=== PATIENT | male | born 1955 | race Caucasian/White ===

== ENCOUNTER 2019-05-30 11:37 | Outpatient (CLI) | payer OTHER ==
--- NOTE | 2019-05-30 12:00 | RAD ---
XR Chest Pa Lat STANDARD HISTORY: Difficulty breathing COMPARISON: None FINDINGS: The heart size is normal. The lungs are well expanded without focal areas of consolidation, pneumothorax or pleural effusions. There is prominence of the pulmonary vascularity.
== END 2019-05-30 11:38 | disposition home or self-care (01) ==
LOC: BICRAD 11:37
PROVIDERS: ATTEND Family Medicine
DX: J44.1 Chronic obstructive pulmonary disease with (acute) exacerbation (principal); R06.02 Shortness of breath
CPT/HCPCS: 71046

== ENCOUNTER 2019-06-01 09:36 | Inpatient (IN) | payer SELFPAY ==
--- NOTE | 2019-06-01 10:14 | RAD ---
XR Chest 1 View Portable HISTORY: Cough and congestion. COMPARISON: 05/30/2019 study. FINDINGS: The heart size is enlarged. There are atherosclerotic changes of the aorta. There are chron ic lung changes present. No infiltrative process. IMPRESSION: Cardiomegaly with chronic lung change.
[2019-06-01 10:43] LABS: #Basophils 0.1 thou/uL (0.0-0.2); #Eosinphils 0.1 thou/uL (0.0-0.7); #Lymphocytes 1.9 thou/uL (1.20-3.40); #Monocytes 0.5 thou/uL (0.11-0.59); #Neutrophils 4.2 thou/uL (1.40-6.50); %Basophils 1.8 % (0.0-1.0); %Eosinophils 1.5 % (0.0-10.0); %Lymphocytes 27.4 % (21.0-51.0); %Monocytes 6.7 % (0.0-10.0); %Neutrophils 62.6 % (42.0-75.0); Hemoglobin 15.8 g/dL (14.0-18.0); Mean Corpuscular HGB CONC 32.6 g/dL (32.0-36.0); Mean Corpuscular Hemoglobin 33.2 pg (27.0-31.0); Mean Platelet Volume 7.8 fL (7.4-10.4); Platelet Count 132 thou/uL (130-400); RBC Distribution Width 12.5 % (11.5-14.5); Red Blood Cell (RBC) Count 4.76 mill/uL (4.70-6.10); White Blood Cell (WBC) Count 6.7 thou/uL (4.8-10.8)
[2019-06-01 11:08] LABS: ALT (SGPT) 38 U/L (8-55); AST (SGOT) 20 U/L (5-34); Albumin 3.5 g/dL (3.4-4.8); Alkaline Phosphatase 72 U/L (40-110); Anion Gap 10 mmol/L (10-20); BUN (Urea Nitrogen) 19 mg/dL (8.4-25.7); Bilirubin, Total 0.9 mg/dL (0.2-1.2); CK (CPK) 102 U/L (30-200); Calc. Creatinine Clearance 0 mL/min (70-130); Carbon Dioxide 25 mmol/L (23-31); Chloride 110 mmol/L (98-107); Estimated GFR-MDRD 61; Globulin 2.5 g/dL (2.4-3.5); Glucose 123 mg/dL (80-115); Lipase 23 U/L (8-78); Potassium 4.2 mmol/L (3.5-5.1); Sodium 141 mmol/L (136-145)
[2019-06-01 11:28] LABS: CKMB 4.9 ng/mL (0-6.6)
--- NOTE | 2019-06-01 11:55 | CT ---
CTA Angio Chest W WO Con HISTORY: Cough shortness of breath and elevated d-dimer. COMPARISON: Chest x-ray done earlier today. Also a 12/29/2012 CT examination. FINDINGS: There are mild bilateral pleural effusions right slightly larger than the left. There are s ome areas of parenchymal scarring in both lung saldaña. There is no significant mediastinal, hilar or axillary adenopathy. There is good pulmonary artery opacification and there is no CT evidence for pulmonary embolus. Visualized liver parenchyma is normal. Right and left kidneys are normal in size. Small hypodensity w ithin the right kidney is partially visualized most likely a cyst. IMPRESSION: 1. No CT evidence for pulmonary embolus. 2. Mild bilateral pleural effusions right larger than left.
[2019-06-01] MEDS ORDERED: Aspirin Chewable 81 MG TAB ONE ×2 (12:07→12:08)
[2019-06-01] MEDS ORDERED: Iopamidol-370 76% 500 ML 1 ML ONE (12:18)
--- NOTE | 2019-06-01 12:32 | PDOC.FPRHP ---
- History of Present Illness Chief Complaint: Chest Pain, Dyspnea History of Present Illness: 66yo with pmh of CAD and endocarditis presents for chest pain, SOB, cough and fever. Saw Dr Alcazar for his cough 2 weeks ago and was prescribed Augmentin and an inhaler. Symptoms continued so late last week a CXR was normal, he was prescribed doxycyline for continued cough. Has been taking Mucinex D with minimal relief. His chest pain has been intermittent, occuring every hour for 20 mins, but became worse this morning causing him to be seen. Chest pain radiates from left lower chest to right side, had an episode radiating down both arms this morning. Endorsed nausea, diaphoresis intermittently, lightheadedness when standing. Currently experiencing pain. Denies vomiting, syncopal episode. He has PMH significant for LAD stent placement w/ poor cardiology follow up. Subsequently he had a bacterial infection on the stent requiring 58 days of antibiotics. He currently is prescribed statin therapy, HERVE I, coreg. PCP: Dr Alcazar ED Course: In the ED pt was found to have indeterminate troponin, CXR revealed enlarged heart w/ chronic lung changes, and a CTA chest ruling out PE, elevated d-dimer, but showed pleural effusions, R > L. BNP elevated, 1909 w/o comparison BNP. CRP 1.27. Abx were not started at pt complained of subjective chills but did no source of infection. Lipase negative, influenza negative. Vitals were stable. - Allergies/Adverse Reactions Allergies Allergy/AdvReac Type Severity Reaction Status Date / Time No Known Allergies Allergy Verified 06/01/19 14:42 - Home Medications Medication Instructions Recorded Confirmed Type Lisinopril 40 mg PO DAILY 12/30/12 06/01/19 History Carvedilol [Coreg] 3.125 mg PO BID 01/04/13 06/01/19 History Simvastatin 20 mg PO HS 01/04/13 06/01/19 History Aspirin [Aspirin EC] 325 mg PO DAILY 06/01/19 06/01/19 History [place]-3 Fatty Acids/Fish Oil 1 cap PO DAILY 06/01/19 06/01/19 History [[place] 3 Fish Oil Softgel] Tamsulosin HCl [Flomax] 0.4 mg PO DAILY 06/01/19 06/01/19 History - History PMHx: HTN, HLD, BPH, Bronchitis PSHx: Tonsillectomy FHx:non-contributory Social: smoked 1ppd since age 19, occasional alcohol - Review of Systems General: reports: fever/chills. denies: weight/appetite/sleep changes, fatigue ENT: denies: nasal congestion, rhinorrhea Respiratory: reports: cough, shortness of breath. denies: congestion Cardiovascular: reports: chest pain. denies: palpitation, edema, orthopnea Gastrointestinal: reports: nausea. denies: vomiting, diarrhea, constipation Genitourinary: denies: incontinence, dysuria Skin: denies: rashes, lesions Musculoskeletal: denies: pain, swelling Neurological: denies: numbness, syncope - Vital signs BP: 128/87 HR: 82 RR: 20 Tmax: 98.3 Pox: 98% on RA Wt: 82.5 kg - Physical Exam Constitutional: NAD, awake, alert and oriented HEENT: PERRLA, EOMI, MMM Neck: FROM, trachea midline Chest: no-tender to palpation Heart: RRR, normal S1/S2, pulses present, no edema Lungs: no respiratory distress -Lungs: Bibasilar crackles present. Good air movement in middle to top of lung. Abdomen: soft, non-tender, bowel sounds present Musculoskeletal: normal structure, normal tone Neurological: no focal deficit, CN II-XII intact Skin: capillary refill <2 seconds Heme/Lymphatic: no purpura, no petechia Psychiatric: normal mood and affect, good judgment and insight FMR H&P: Results - Labs Result Diagrams: 06/02/19 04:42 06/02/19 04:42 Lab results: WBC 6.7 thou/uL (4.8-10.8) 06/01/19 10:02 Hgb 15.8 g/dL (14.0-18.0) 06/01/19 10:02 Hct 48.5 % (42.0-52.0) 06/01/19 10:02 MCV 102.0 fL (78.0-98.0) H 06/01/19 10:02 Plt Count 132 thou/uL (130-400) 06/01/19 10:02 Neutrophils % 62.6 % (42.0-75.0) 06/01/19 10:02 ESR Westergren Less than 1 mm/hr (Less than 20) 06/01/19 10:02 Sodium 141 mmol/L (136-145) 06/01/19 10:01 Potassium 4.2 mmol/L (3.5-5.1) 06/01/19 10:01 Chloride 110 mmol/L (98-107) H 06/01/19 10:01 Carbon Dioxide 25 mmol/L (23-31) 06/01/19 10:01 BUN 19 mg/dL (8.4-25.7) 06/01/19 10:01 Creatinine 1.21 mg/dL (0.7-1.3) 06/01/19 10:01 Glucose 123 mg/dL (80-115) H 06/01/19 10:01 Lactic Acid 1.2 mmol/L (0.5-2.2) 06/01/19 10:02 Calcium 9.0 mg/dL (7.8-10.44) 06/01/19 10:01 Total Bilirubin 0.9 mg/dL (0.2-1.2) 06/01/19 10:01 AST 20 U/L (5-34) 06/01/19 10:01 ALT 38 U/L (8-55) 06/01/19 10:01 Alkaline Phosphatase 72 U/L (40-110) 06/01/19 10:01 Creatine Kinase 102 U/L (30-200) 06/01/19 10:01 CK-MB (CK-2) 4.9 ng/mL (0-6.6) 06/01/19 10:02 C-Reactive Protein 1.27 mg/dL (= or < 0.5) H 06/01/19 10:13 B-Natriuretic Peptide 1909.4 pg/mL (0-100) H 06/01/19 10:01 Serum Total Protein 6.0 g/dL (5.8-8.1) 06/01/19 10:01 Albumin 3.5 g/dL (3.4-4.8) 06/01/19 10:01 Lipase 23 U/L (8-78) 06/01/19 10:01 - EKG Interpretation EKG: NRS, Trigeminy with every third beat a PVC, no ST segment changes - Radiology Interpretation Chest x-ray Status: image reviewed by me (Enlarged heart noted by me. Rad noted chronic lung changes.) CT scan - chest Status: report reviewed by me (CTA revealed no evidence of PE, showed pleural effusion R > L) FMR H&P: A/P - Problem List (1) Atypical chest pain Current Visit: Yes Status: Acute Code(s): R07.89 - OTHER CHEST PAIN (2) Angina at rest Current Visit: Yes Status: Acute Code(s): I20.8 - OTHER FORMS OF ANGINA PECTORIS (3) HTN (hypertension) Current Visit: Yes Status: Acute Code(s): I10 - ESSENTIAL (PRIMARY) HYPERTENSION (4) HLD (hyperlipidemia) Current Visit: Yes Status: Acute Code(s): E78.5 - HYPERLIPIDEMIA, UNSPECIFIED (5) BPH (benign prostatic hyperplasia) Current Visit: Yes Status: Acute Code(s): N40.0 - BENIGN PROSTATIC HYPERPLASIA WITHOUT LOWER URINRY TRACT SYMP (6) Hx of bacterial endocarditis Current Visit: Yes Status: Acute Code(s): Z86.79 - PERSONAL HISTORY OF OTHER DISEASES OF THE CIRCULATORY SYSTEM (7) History of placement of stent in LAD coronary artery Current Visit: Yes Status: Acute Code(s): Z95.5 - PRESENCE OF CORONARY ANGIOPLASTY IMPLANT AND GRAFT (8) Elevated brain natriuretic peptide (BNP) level Current Visit: Yes Status: Acute Code(s): R79.89 - OTHER SPECIFIED ABNORMAL FINDINGS OF BLOOD CHEMISTRY (9) Pleural effusion Current Visit: Yes Status: Acute Code(s): J90 - PLEURAL EFFUSION, NOT ELSEWHERE CLASSIFIED - Plan Pt is a 63 yo male with hx of CAD, stent placed in LAD, hx of endocarditis, HLD , HTN who presents for a 2 week history of cough, dyspnea, and chest pain currently being worked up for cardiac etiology. # Atypical Chest Pain # Hx of LAD stent, CAD # Bilateral Pleural Effusions Pt presents with chest pain with history suspicious for cardiac etiology. He states he had 3 vessels with some degree of atherosclerosis when he received the LAD stent in 2004. He has an elevated BNP, although we do not know his baseline, but pt complains of dyspnea, cough during this time and has pleural effusions on CTA. Concerned for heart failure. Will order echo, trop x 3, procalcitonin to further stratify etiology. - influenza neg, lipase WNL, trop indeterminate x 1, CRP elevated, D-DImer 1.43 , ESR WNL. - pending echo - pending procal - pending trops - lasix 20 mg IV once - Stress am # Cough - procal pending - pending echo # Hx of Endocarditis # Chills Pt complains of chills. 8 years ago he had endocarditis affecting the stent. He was treated for 58 days. No source of infection although he has been on 2 weeks of augmentin then doxycycline for bronchitis. - echo as above - blood cx pending. No other source of infection at this time for causing chills. # HTN - continue home meds; hold carvedilol today for stress test am # HLD - continue home meds, consider titrating up or switching medication # BPH - continue home meds Fluids: None Diet: HH, NPO at midnight for stress VTE: lovenox Code: Full Dispo: < 2 midnight stay FMR H&P: Upper Level - Pertinent history 63yo male with pmh of CAD s/p stent 2004, endocarditis 2009, HTN presents for chills, SOB and chest pain. Also reports cough and congestion. Symptoms all started 2 weeks ago. He was seen by his PCP and treated for bronchitis with no improvement. Chest pain is intermittent, left lower chest radiating to right side. Sometimes radiates down bilateral arms. Denies associated n/v, diaphoresis. Reports endocarditis was treated here in 2009. Never followed up with a bonus clerk after discharge. - Pertinent findings Gen: NAD Neck: JVD present. CV: RRR, no murmurs Pulm: Bibasilar crackles. No respiratory distress. On room air. Extremities: No edema. Atypical Chest Pain - Heart Score: 5. EKG with trigeminy, no signs of ischemia. Initial trop indeterminate. Flu neg. CXR nml and CTA with b/l pleural effusions. Received ASA in ED. Will order Nitro paste and Morphine PRN for pain. Admit to tele obs and make NPO at midnight for stress test in AM. Consider consulting cardiology as pt may be high enough risk for cath instead of stress test. Continue to trend Trops. Hx of Endocarditis - Do not suspect current infection. Will check procal. Hold off on antibiotics. Bld cx drawn. Echo ordered. Currently afebrile and no reported fever at home. Suspect CHF - Bibasilar crackles with elevated BNP. CTA with bilateral pleural effusions R> L. Could be cause of his SOB, chest pain and cough. Will evaluate with Echo and give Lasix 20mg IV. Strict I&Os and weigh daily. Elevated D-Dimer: - CTA neg for PE Other chronic medical conditions detailed in ad operations intern note. - Plan Date/Time: 06/01/19 1232 I, Abby Castañeda, have evaluated this patient and agree with findings/plan as outlined by ad operations intern resident. Pertinent changes/additions are listed here. Addendum - Attending - Attending Attestation Date/Time: 06/02/19 0233 I personally evaluated the patient and discussed the management with Dr. Cutler /Garry I agree with the History, Examination, Assessment and Plan documented above with any addition or exceptions noted below. 63 yo hypertensive smoker with CAD with 2 week cough treated with antibiotic/ inhaler. Patient now with nonexertional Angina. BNP elevated with P.E. c/w HF rales and pleural effusion mild JVD no leg edema no PND. Patient with PMHX significant CAD s/p stent with lack recommended Cardiology follow up. History of endocarditis treated at [facility] not able to retrive past medical record over 10 years ago. Will be admitted PE has been ruled out with CTA in ER no pulmonary infiltrates seen. Patient needs echo and stress testing and starting diuresis with IV lasix. Cardiology consult given his significant PMHX with no f/ u urgency pending results of testing and hospital course.
[2019-06-01 12:43] LABS: Bacteria/HPF None Seen HPF (None Seen); Bilirubin Negative (Negative); Blood, Urine Negative (Negative); Clarity Clear (Clear); Glucose, Urine (Dipstick) Normal (Negative); Leukocyte 75 Leu/uL (Negative); Nitrite Negative (Negative); Protein, Urine (Dipstick) 20 mg/dL (Neg-Trace); RBC/HPF 0-3 HPF (0-3); Squamous Epithelial 0-3 HPF (0-3); Urobilinogen Normal mg/dL (Less than 2)
[2019-06-01] MEDS ORDERED: Ondansetron PF 4 MG/2 ML Vial IVP PRN (13:30)
[2019-06-01] MEDS ORDERED: Ondansetron ODT 4 MG TAB SL PRN (13:30)
[2019-06-01] MEDS ORDERED: Nitroglycerin 0.4 MG TAB (25 Tab Bottle) PO PRN (13:53)
[2019-06-01] MEDS ORDERED: Ondansetron ODT 4 MG TAB PO PRN (13:53)
[2019-06-01] MEDS ORDERED: Furosemide 20 MG/2 ML VIAL SLOW IVP SCH ×2 (14:00→19:00)
[2019-06-01 15:06] LABS: Troponin I 0.062 ng/mL (< 0.028)
[2019-06-01] MEDS: Nicotine 14 MG PATCH TD SCH (15:13)
[2019-06-01 15:32] VITALS: BMI 23.9
[2019-06-01 18:03] LABS: Troponin I 0.064 ng/mL (< 0.028)
[2019-06-01] MEDS: Nitroglycerin 2% Ointment 1 INCH/1 GM Packet TOP SCH (19:11)
[2019-06-01] MEDS: Morphine 2 MG/ML SYRINGE SLOW IVP PRN (19:18)
--- NOTE | 2019-06-01 19:39 | CON ---
DATE OF CONSULTATION: 06/01/2019 REASON FOR CONSULTATION: Congestive heart failure and history of coronary artery disease. HISTORY OF PRESENT ILLNESS: Mr. Marin is a pleasant 63-year-old gentleman, history of anterior myocardial infarction in the early 1999s. He had a stent placed. The family states that about 10 years ago, he had endocarditis and was treated here. The patient has been having progressive shortness of breath and having chest tightness and pain in the both arms. Also had subjective fever and chills. He finally came to the emergency room for further evaluation. The patient has not kept a followup with Cardiology. MEDICATIONS: At home include; 1. Lisinopril. 2. Carvedilol. 3. Simvastatin. 4. Tamsulosin. REVIEW OF SYSTEMS: CONSTITUTIONAL: Positive for weakness and fatigue. VISION: No changes. HEARING: No changes. PULMONARY: Positive for shortness of breath. CARDIAC: Positive shortness of breath and chest pressure. GASTROINTESTINAL: No nausea, vomiting, or diarrhea. SKIN: No rashes. NEUROLOGIC: No unilateral weakness or numbness. PSYCHIATRIC: No unusual depression or anxiety. PHYSICAL EXAMINATION: GENERAL: This is an ill-appearing gentleman, looks older than his chronologic age of 63. He is having some cyclical breathing compatible with Yon-Juarez. VITAL SIGNS: His blood pressure 120/97 and pulse 100 and sinus. HEENT: Eyes, sclerae nonicteric. Mouth, mucous membranes moist. NECK: Supple. No lymphadenopathy. LUNGS: Clear. No wheezing, rales, or rhonchi. CARDIAC: Normal S1 and normal S2. I do not hear murmur, rub, or gallop. ABDOMEN: Soft and nontender. EXTREMITIES: Cool, but not cold. I do not feel pedal pulses. He does have femoral pulses bilaterally. PERTINENT LABORATORY DATA: Troponin of 0.064. Potassium is 4.2. Hemoglobin 15.8. MCV 102. Echocardiogram was done showing severely depressed left ventricular function, ejection fraction 15% to 20%. The apex and anterior wall are akinetic. Moderate tricuspid insufficiency. Lectmipx-ku-vwabew mitral regurgitation. The heart is otherwise globally hypokinetic with akinesis of the other areas. ASSESSMENT: 1. Severely depressed left ventricular function. 2. Congestive heart failure, acute on chronic. 3. Suspect severe multivessel coronary artery disease. 4. May have underlying infection as well. 5. Likely low cardiac output evidence by periodic breathing. PLAN: 1. Add nitrates. 2. Continue beta blockers. 3. Cancel the stress test. 4. Continue diuretic and HERVE inhibitors. We will be glad to follow with you. Prognosis guarded in this gentleman. Eventually, will need cardiac catheterization to see what the options may be. Long-term prognosis guarded at this degree of left ventricular dysfunction. Job ID: [id number]
[2019-06-01] MEDS ORDERED: Atorvastatin Calcium 10 MG TAB PO SCH (21:00)
[2019-06-01] MEDS: Atorvastatin Calcium 40 MG TAB PO SCH (22:24)
[2019-06-01] MEDS: Enoxaparin Sodium 80 MG/0.8 ML SYRINGE SC SCH (22:24)
[2019-06-02] MEDS: Morphine 2 MG/ML SYRINGE SLOW IVP PRN ×3 (03:45→22:09)
[2019-06-02] MEDS: Nitroglycerin 2% Ointment 1 INCH/1 GM Packet TOP SCH ×3 (03:46→22:09)
[2019-06-02 05:00] LABS: #Basophils 0.1 thou/uL (0.0-0.2); #Eosinphils 0.1 thou/uL (0.0-0.7); #Lymphocytes 2.5 thou/uL (1.20-3.40); #Monocytes 0.7 thou/uL (0.11-0.59); #Neutrophils 4.9 thou/uL (1.40-6.50); %Basophils 0.8 % (0.0-1.0); %Eosinophils 1.6 % (0.0-10.0); %Lymphocytes 30.1 % (21.0-51.0); %Monocytes 8.3 % (0.0-10.0); %Neutrophils 59.1 % (42.0-75.0); Hemoglobin 16.9 g/dL (14.0-18.0); Mean Corpuscular HGB CONC 32.8 g/dL (32.0-36.0); Mean Corpuscular Hemoglobin 33.4 pg (27.0-31.0); Mean Platelet Volume 7.8 fL (7.4-10.4); Platelet Count 145 thou/uL (130-400); RBC Distribution Width 12.8 % (11.5-14.5); Red Blood Cell (RBC) Count 5.05 mill/uL (4.70-6.10); White Blood Cell (WBC) Count 8.4 thou/uL (4.8-10.8)
[2019-06-02 05:19] LABS: Anion Gap 13 mmol/L (10-20); BUN (Urea Nitrogen) 16 mg/dL (8.4-25.7); Calc. Creatinine Clearance 76 mL/min (70-130); Carbon Dioxide 21 mmol/L (23-31); Chloride 110 mmol/L (98-107); Estimated GFR-MDRD 63; Glucose 106 mg/dL (80-115); Potassium 4.3 mmol/L (3.5-5.1); Sodium 140 mmol/L (136-145)
[2019-06-02 05:31] LABS: Cardiac Risk 3.2 (Less than 4.5)
--- NOTE | 2019-06-02 06:01 | PDOC.FM ---
- Subjective Subjective: Pt is doing well today. His SOB has improved but remains with episodes of dyspnea. His states he is doing better. He denies Nausea. He has an appetite. - Objective Vital Signs & Weight: Vital Signs (12 hours) Temp Pulse Resp BP BP Pulse Ox 06/02/19 04:00 97.6 F 97 16 129/72 94 L 06/02/19 00:15 97.9 F 93 20 102/75 99 06/01/19 22:58 94 L 06/01/19 18:14 98 F 100 26 H 120/68 95 Weight Weight 81.465 kg I&O: 05/31/19 06/01/19 06/02/19 06:59 06:59 06:59 Intake Total 240 Output Total 2350 Balance -2110 Result Diagrams: 06/02/19 04:42 06/02/19 04:42 Phys Exam - Physical Examination Constitutional: NAD Respiratory: no wheezing Light crackles in bibasilar lungs Cardiovascular: RRR, no significant murmur Gastrointestinal: soft, no distention Musculoskeletal: no edema Dx/Plan (1) Atypical chest pain Code(s): R07.89 - OTHER CHEST PAIN Status: Acute (2) Angina at rest Code(s): I20.8 - OTHER FORMS OF ANGINA PECTORIS Status: Acute (3) HTN (hypertension) Code(s): I10 - ESSENTIAL (PRIMARY) HYPERTENSION Status: Acute (4) HLD (hyperlipidemia) Code(s): E78.5 - HYPERLIPIDEMIA, UNSPECIFIED Status: Acute (5) BPH (benign prostatic hyperplasia) Code(s): N40.0 - BENIGN PROSTATIC HYPERPLASIA WITHOUT LOWER URINRY TRACT SYMP Status: Acute (6) Hx of bacterial endocarditis Code(s): Z86.79 - PERSONAL HISTORY OF OTHER DISEASES OF THE CIRCULATORY SYSTEM Status: Acute (7) History of placement of stent in LAD coronary artery Code(s): Z95.5 - PRESENCE OF CORONARY ANGIOPLASTY IMPLANT AND GRAFT Status: Acute (8) Elevated brain natriuretic peptide (BNP) level Code(s): R79.89 - OTHER SPECIFIED ABNORMAL FINDINGS OF BLOOD CHEMISTRY Status : Acute (9) Pleural effusion Code(s): J90 - PLEURAL EFFUSION, NOT ELSEWHERE CLASSIFIED Status: Acute - Plan Plan: Pt is a 63 yo male with hx of CAD, stent placed in LAD, hx of endocarditis, HLD , HTN who presents for a 2 week history of cough, dyspnea, and chest pain currently being worked up for cardiac etiology. # Atypical Chest Pain # Hx of LAD stent, CAD # Bilateral Pleural Effusions Pt presents with chest pain with history suspicious for cardiac etiology. He states he had 3 vessels with some degree of atherosclerosis when he received the LAD stent in 2004. He has an elevated BNP, although we do not know his baseline, but pt complains of dyspnea, cough during this time and has pleural effusions on CTA. Concerned for heart failure. Will order echo, trop x 3, procalcitonin to further stratify etiology. - influenza neg, lipase WNL, trop indeterminate x 1, CRP elevated, D-DImer 1.43 , ESR WNL. Procal neg. Trop indeterminate x 3. Echo 15-20% EF. 2.3 L of fluid off yesterday. Continue diuresing. Dr. Corea stopped stress test am, restarted Beta Owen, gave extra dose lasix; will need cath in near future. Increase beta owen if HTN management needs to be optimized. - lasix 20 mg IV BID - Cards consult; appreciate recs # Cough - likely secondary to HF # Hx of Endocarditis # Chills Pt complains of chills. 8 years ago he had endocarditis affecting the stent. He was treated for 58 days. No source of infection although he has been on 2 weeks of augmentin then doxycycline for bronchitis. - no evidence on echo - blood cx pending. No other source of infection at this time for causing chills. # HTN - continue home meds; hold carvedilol today for stress test am # HLD - continue home meds, consider titrating up or switching medication # BPH - continue home meds Fluids: None Diet: HH, NPO at midnight for stress VTE: lovenox Code: Full Dispo: < 2 midnight stay Addendum - Attending - Attending Attestation Date/Time: 06/02/19 5827 I personally evaluated the patient and discussed the management with Dr. Cutler I agree with the History, Examination, Assessment and Plan documented above with any addition or exceptions noted below. Good response to diuresis further evaluation with heart catherization per Cardiology.
[2019-06-02] MEDS: Furosemide 20 MG/2 ML VIAL SLOW IVP SCH ×2 (06:28→14:09)
[2019-06-02] MEDS ORDERED: Carvedilol 3.125 MG TAB PO SCH (08:00)
[2019-06-02] MEDS ORDERED: Aspirin 300 MG Suppository PR SCH (09:00)
[2019-06-02] MEDS ORDERED: Lisinopril 20 MG TAB PO SCH (09:00)
[2019-06-02] MEDS ORDERED: Enoxaparin Sodium 40 MG/0.4 ML SYRINGE SC SCH (09:00)
[2019-06-02] MEDS ORDERED: Aspirin 81 mg Enteric Coated Tablet PO SCH (09:00)
[2019-06-02] MEDS: Aspirin 325 mg Enteric Coated Tablet PO SCH (09:42)
[2019-06-02] MEDS: Tamsulosin HCl 0.4 MG CAP PO SCH (09:43)
[2019-06-02] MEDS: Enoxaparin Sodium 80 MG/0.8 ML SYRINGE SC SCH ×2 (09:43→20:04)
[2019-06-02] MEDS: Acetaminophen 325 MG TAB PO PRN (12:02)
[2019-06-02] MEDS: Nicotine 14 MG PATCH TD SCH (14:09)
[2019-06-02] MEDS: Carvedilol 6.25 MG TAB PO SCH (17:13)
[2019-06-02] MEDS ORDERED: Communication Order-Pharmacy FS SCH (18:00)
--- NOTE | 2019-06-02 18:10 | PRG ---
DATE OF SERVICE: 06/02/2019 SUBJECTIVE: Mr. Marin is breathing much better today. No chest pain or pressure. He looks much more relaxed. OBJECTIVE: VITAL SIGNS: Blood pressure 105/65, pulse 70. LUNGS: Clear. CARDIAC: Normal S1, normal S2. ABDOMEN: Soft and nontender. ASSESSMENT: 1. Severely depressed left ventricular function. 2. Episode of congestive heart failure, associated with chest pressure and anginal symptoms. 3. Myocardial infarction over 15 years ago with stenting. 4. He said the other vessels also had narrowing. 5. He still continued to smoke up until this admission. PLAN: Proceed to cardiac catheterization tomorrow and the family and patient understands the risks are markedly increased due to heart muscle weakness. The risks including bleeding, infection, stent thrombosis, stent restenosis, emergency bypass surgery all understood by the patient and family. They understand the risks are much hard and because of his heart muscle weakness, also iodine allergy, loss of blood supply to leg or kidney all discussed. Job ID: [id number]
[2019-06-02] MEDS: Atorvastatin Calcium 40 MG TAB PO SCH (20:04)
[2019-06-02] MEDS ORDERED: hydrOXYzine 25 MG TAB PO PRN (21:00)
[2019-06-03] MEDS ORDERED: Diazepam 5 MG TAB PO SCH (06:00)
--- NOTE | 2019-06-03 06:02 | PDOC.FM ---
- Subjective Subjective: Pt is doing better than on admission but remains with episodes of SOB. He is anxious as is his . Pt understands plan and is waiting for the cath. - Objective Vital Signs & Weight: Vital Signs (12 hours) Temp Pulse Resp BP Pulse Ox 06/03/19 04:15 95 06/03/19 04:00 97.6 F 92 16 109/79 90 L 06/02/19 23:58 97.2 F L 75 16 105/75 96 06/02/19 20:00 97.4 F L 87 16 111/76 94 L Weight Weight 80.24 kg I&O: 06/01/19 06/02/19 06/03/19 06:59 06:59 06:59 Intake Total 240 733 Output Total 2350 1075 Balance -2110 -342 Result Diagrams: 06/03/19 06:11 06/03/19 06:11 Phys Exam - Physical Examination Constitutional: NAD Respiratory: no wheezing, clear to auscultation bilateral Cardiovascular: RRR, no significant murmur Gastrointestinal: soft, non-tender Musculoskeletal: no edema, pulses present Dx/Plan (1) Atypical chest pain Code(s): R07.89 - OTHER CHEST PAIN Status: Acute (2) Angina at rest Code(s): I20.8 - OTHER FORMS OF ANGINA PECTORIS Status: Acute (3) HTN (hypertension) Code(s): I10 - ESSENTIAL (PRIMARY) HYPERTENSION Status: Acute (4) HLD (hyperlipidemia) Code(s): E78.5 - HYPERLIPIDEMIA, UNSPECIFIED Status: Acute (5) BPH (benign prostatic hyperplasia) Code(s): N40.0 - BENIGN PROSTATIC HYPERPLASIA WITHOUT LOWER URINRY TRACT SYMP Status: Acute (6) Hx of bacterial endocarditis Code(s): Z86.79 - PERSONAL HISTORY OF OTHER DISEASES OF THE CIRCULATORY SYSTEM Status: Acute (7) History of placement of stent in LAD coronary artery Code(s): Z95.5 - PRESENCE OF CORONARY ANGIOPLASTY IMPLANT AND GRAFT Status: Acute (8) Elevated brain natriuretic peptide (BNP) level Code(s): R79.89 - OTHER SPECIFIED ABNORMAL FINDINGS OF BLOOD CHEMISTRY Status : Acute (9) Pleural effusion Code(s): J90 - PLEURAL EFFUSION, NOT ELSEWHERE CLASSIFIED Status: Acute - Plan Plan: Pt is a 63 yo male with hx of CAD, stent placed in LAD, hx of endocarditis, HLD , HTN who presents for a 2 week history of cough, dyspnea, and chest pain currently waiting for cardiac cath, echo 15-20 %. # Atypical Chest Pain # Hx of LAD stent, CAD # Bilateral Pleural Effusions Pt presents with chest pain with history suspicious for cardiac etiology. He states he had 3 vessels with some degree of atherosclerosis when he received the LAD stent in 2004. He has an elevated BNP, although we do not know his baseline, but pt complained of dyspnea, cough during this time and has pleural effusions on CTA. Echo revealed EF 15-20%. Dr. Corea will perform cardiac cath today. Pt will need life vest on discharge likely. Pt continues to diurese well. - influenza neg, lipase WNL ,CRP elevated, D-DImer 1.43, ESR WNL. Procal neg. Trop indeterminate x 3. - lasix 20 mg IV BID - Cards consult; appreciate recs # HFrEF - as above - statin, HERVE-I, beta vipin, asp started # Cough - likely secondary to HF # Hx of Endocarditis # Chills Pt complains of chills. 8 years ago he had endocarditis affecting the stent. He was treated for 58 days. No source of infection although he has been on 2 weeks of augmentin then doxycycline for bronchitis. - no evidence on echo - blood cx negative # HTN - as above, well controlled # HLD - continue home meds, consider titrating up or switching medication # BPH - continue home meds Fluids: None Diet: HH, NPO at midnight for stress VTE: lovenox Code: Full Dispo: < 2 midnight stay Addendum - Attending - Attending Attestation Date/Time: 06/03/19 8014 I personally evaluated the patient and discussed the management with Dr. Cutler. I agree with the History, Examination, Assessment and Plan documented above with any addition or exceptions noted below. Patient undergoing heart cath this morning. Further recs per cardiology result.
[2019-06-03] MEDS: Furosemide 20 MG/2 ML VIAL SLOW IVP SCH (06:06)
[2019-06-03] MEDS: Nitroglycerin 2% Ointment 1 INCH/1 GM Packet TOP SCH ×3 (06:06→19:39)
[2019-06-03] MEDS: Sodium Chloride 0.9% 1,000 ML IV SCH (06:07)
[2019-06-03 06:19] LABS: #Basophils 0.1 thou/uL (0.0-0.2); #Eosinphils 0.2 thou/uL (0.0-0.7); #Lymphocytes 2.5 thou/uL (1.20-3.40); #Monocytes 0.6 thou/uL (0.11-0.59); #Neutrophils 3.4 thou/uL (1.40-6.50); %Basophils 1.6 % (0.0-1.0); %Eosinophils 2.5 % (0.0-10.0); %Lymphocytes 37.5 % (21.0-51.0); %Monocytes 8.6 % (0.0-10.0); %Neutrophils 49.8 % (42.0-75.0); Hemoglobin 16.1 g/dL (14.0-18.0); Mean Corpuscular Hemoglobin 33.1 pg (27.0-31.0); Mean Platelet Volume 7.8 fL (7.4-10.4); Platelet Count 143 thou/uL (130-400); RBC Distribution Width 12.5 % (11.5-14.5); Red Blood Cell (RBC) Count 4.88 mill/uL (4.70-6.10); White Blood Cell (WBC) Count 6.8 thou/uL (4.8-10.8)
[2019-06-03 06:57] LABS: Anion Gap 11 mmol/L (10-20); BUN (Urea Nitrogen) 21 mg/dL (8.4-25.7); Calc. Creatinine Clearance 73 mL/min (70-130); Calcium 8.6 mg/dL (7.8-10.44); Carbon Dioxide 24 mmol/L (23-31); Chloride 108 mmol/L (98-107); Estimated GFR-MDRD 61; Glucose 103 mg/dL (80-115); Sodium 139 mmol/L (136-145)
[2019-06-03] MEDS ORDERED: Heparin (Artline) 1,000 ML ONE (09:16)
[2019-06-03] MEDS: Tamsulosin HCl 0.4 MG CAP PO SCH (09:39)
[2019-06-03] MEDS: Carvedilol 6.25 MG TAB PO SCH (09:39)
[2019-06-03] MEDS: Lisinopril 10 MG TAB PO SCH (09:39)
[2019-06-03] MEDS: Aspirin 325 mg Enteric Coated Tablet PO SCH (09:39)
[2019-06-03] MEDS ORDERED: Fentanyl 100 MCG/2 ML VIAL ONE (10:43)
[2019-06-03] MEDS ORDERED: Midazolam HCl 2 mg/2 ml Vial ONE (10:43)
[2019-06-03] MEDS ORDERED: Iopamidol 370 76% 100 ML VIAL ONE (10:56)
[2019-06-03] MEDS ORDERED: Sodium Chloride 0.9% 200 ML IV PRN (11:46)
[2019-06-03] MEDS ORDERED: Nitroglycerin 0.4 MG TAB (25 Tab Bottle) SL PRN (11:46)
[2019-06-03] MEDS ORDERED: Acetaminophen/Codeine 30-300mg Tablet PO PRN ×2 (11:46)
[2019-06-03] MEDS: Nicotine 14 MG PATCH TD SCH (14:11)
--- NOTE | 2019-06-03 14:55 | PRG ---
DATE OF SERVICE: 06/03/2019 ADDENDUM: Please add this as an addendum to the note of Dr. Jose Cutler. Mr. Marin is a 63-year-old man with known coronary artery disease, who was admitted with chest pain. He was seen in consultation by the Cardiology Service. He is currently being taken for cardiac catheterization. Job ID: [id number]
[2019-06-03] MEDS: Morphine 2 MG/ML SYRINGE SLOW IVP PRN (15:03)
[2019-06-03] MEDS ORDERED: Clopidogrel Bisulfate 300 MG TAB PO SCH (17:00)
[2019-06-03] MEDS: Atorvastatin Calcium 40 MG TAB PO SCH (19:39)
[2019-06-03] MEDS: Acetaminophen 325 MG TAB PO PRN (21:29)
[2019-06-04] MEDS: Sodium Chloride 0.9% 1,000 ML IV SCH (00:33)
[2019-06-04] MEDS: Nitroglycerin 2% Ointment 1 INCH/1 GM Packet TOP SCH ×4 (05:18→22:58)
[2019-06-04 05:37] LABS: #Basophils 0.1 thou/uL (0.0-0.2); #Eosinphils 0.2 thou/uL (0.0-0.7); #Lymphocytes 2.5 thou/uL (1.20-3.40); #Monocytes 0.5 thou/uL (0.11-0.59); %Basophils 1.2 % (0.0-1.0); %Eosinophils 3.7 % (0.0-10.0); %Lymphocytes 39.1 % (21.0-51.0); %Monocytes 8.5 % (0.0-10.0); %Neutrophils 47.5 % (42.0-75.0); Hemoglobin 15.5 g/dL (14.0-18.0); Mean Corpuscular HGB CONC 32.5 g/dL (32.0-36.0); Mean Corpuscular Hemoglobin 32.7 pg (27.0-31.0); Mean Platelet Volume 7.9 fL (7.4-10.4); Platelet Count 140 thou/uL (130-400); RBC Distribution Width 12.4 % (11.5-14.5); Red Blood Cell (RBC) Count 4.75 mill/uL (4.70-6.10); White Blood Cell (WBC) Count 6.3 thou/uL (4.8-10.8)
--- NOTE | 2019-06-04 05:53 | PDOC.FM ---
- Subjective Subjective: Pt's breathing is better than yesterday but he remains with episodes of dyspnea. states he has been anxious. He denies LE edema. - Objective Vital Signs & Weight: Vital Signs (12 hours) Temp Pulse Resp BP Pulse Ox 06/04/19 04:30 97.5 F L 84 16 113/73 97 06/03/19 23:15 97.6 F 92 18 131/85 96 06/03/19 19:42 97.6 F 86 18 110/73 97 Weight Weight 79.56 kg I&O: 06/02/19 06/03/19 06/04/19 06:59 06:59 06:59 Intake Total 240 1033 2150 Output Total 2350 1775 750 Balance -2110 -742 1400 Result Diagrams: 06/04/19 05:03 06/04/19 05:03 Phys Exam - Physical Examination Constitutional: NAD HEENT: PERRLA, moist MMs Respiratory: no wheezing, clear to auscultation bilateral Cardiovascular: RRR, no significant murmur Gastrointestinal: soft, non-tender Musculoskeletal: no edema, pulses present Psychiatric: normal affect, A&O x 3 Dx/Plan (1) Atypical chest pain Code(s): R07.89 - OTHER CHEST PAIN Status: Acute (2) Angina at rest Code(s): I20.8 - OTHER FORMS OF ANGINA PECTORIS Status: Acute (3) HTN (hypertension) Code(s): I10 - ESSENTIAL (PRIMARY) HYPERTENSION Status: Acute (4) HLD (hyperlipidemia) Code(s): E78.5 - HYPERLIPIDEMIA, UNSPECIFIED Status: Acute (5) BPH (benign prostatic hyperplasia) Code(s): N40.0 - BENIGN PROSTATIC HYPERPLASIA WITHOUT LOWER URINRY TRACT SYMP Status: Acute (6) Hx of bacterial endocarditis Code(s): Z86.79 - PERSONAL HISTORY OF OTHER DISEASES OF THE CIRCULATORY SYSTEM Status: Acute (7) History of placement of stent in LAD coronary artery Code(s): Z95.5 - PRESENCE OF CORONARY ANGIOPLASTY IMPLANT AND GRAFT Status: Acute (8) Elevated brain natriuretic peptide (BNP) level Code(s): R79.89 - OTHER SPECIFIED ABNORMAL FINDINGS OF BLOOD CHEMISTRY Status : Acute (9) Pleural effusion Code(s): J90 - PLEURAL EFFUSION, NOT ELSEWHERE CLASSIFIED Status: Acute (10) Coronary artery disease Code(s): I25.10 - ATHSCL HEART DISEASE OF [place] CORONARY ARTERY W/O ANG PCTRS Status: Acute - Plan Plan: Pt is a 63 yo male with hx of CAD, stent placed in LAD, hx of endocarditis, HLD , HTN who presents for a 2 week history of cough, dyspnea, and chest pain found to have significant atherosclerosis in 3 vessels on cardiac cath. # Atypical Chest Pain # Hx of LAD stent, CAD # Bilateral Pleural Effusions Pt presents with chest pain secondary to cardiac etiology. He states he had 3 vessels with some degree of atherosclerosis when he received the LAD stent in 2004. He has an elevated BNP, although we do not know his baseline, but pt complained of dyspnea, cough during this time and has pleural effusions on CTA. Echo revealed EF 15-20%. Dr. Corea performed cardiac cath revealing 3 vessel CAD, PVD in R iliac; akinetic anterior wall, apex, inferior wall. Pt will need life vest on discharge likely. Pt diuresed well, d/c lasix. - influenza neg, lipase WNL ,CRP elevated, D-DImer 1.43, ESR WNL. Procal neg. Trop indeterminate x 3. - Cards consult; appreciate recs - d/c coreg at this time, continued lisinopril , aspirin, started plavix. # HFrEF - as above # Cough - improving - likely secondary to HF # Hx of Endocarditis # Chills Pt complains of chills. 8 years ago he had endocarditis affecting the stent. He was treated for 58 days. No source of infection although he has been on 2 weeks of augmentin then doxycycline for bronchitis. - no evidence on echo - blood cx negative # HTN - as above, well controlled # HLD - continue home meds, consider titrating up or switching medication # BPH - continue home meds Fluids: None Diet: HH, NPO at midnight for stress VTE: lovenox Code: Full Dispo: < 2 midnight stay
[2019-06-04 06:01] LABS: Anion Gap 11 mmol/L (10-20); BUN (Urea Nitrogen) 17 mg/dL (8.4-25.7); Calc. Creatinine Clearance 91 mL/min (70-130); Calcium 8.4 mg/dL (7.8-10.44); Carbon Dioxide 22 mmol/L (23-31); Chloride 109 mmol/L (98-107); Estimated GFR-MDRD 80; Glucose 97 mg/dL (80-115); Potassium 3.9 mmol/L (3.5-5.1); Sodium 138 mmol/L (136-145)
[2019-06-04] MEDS: Acetaminophen 325 MG TAB PO PRN ×2 (08:46→23:03)
[2019-06-04] MEDS: Lisinopril 10 MG TAB PO SCH (08:46)
[2019-06-04] MEDS: Clopidogrel Bisulfate 75 MG TAB PO SCH (08:46)
[2019-06-04] MEDS: Aspirin 325 mg Enteric Coated Tablet PO SCH (08:46)
[2019-06-04] MEDS: Tamsulosin HCl 0.4 MG CAP PO SCH (08:46)
[2019-06-04] MEDS: Nicotine 14 MG PATCH TD SCH (14:35)
--- NOTE | 2019-06-04 15:33 | ULT ---
US PseudoAneurysm Smita Evl History: Recent catheterization right groin Comparison: None. Findings: Real-time grayscale and color evaluation of the right groin was performed. Mild soft tissue edema. No aneurysm. No hematoma. Impression: No pseudoaneurysm appreciated.
[2019-06-04] MEDS ORDERED: Carvedilol 3.125 MG TAB PO SCH (18:30)
--- NOTE | 2019-06-04 19:44 | PRG ---
DATE OF SERVICE: 06/04/2019 SUBJECTIVE: Mr. Marin is feeling somewhat better he said. He looks somewhat less short of breath. OBJECTIVE: VITAL SIGNS: Blood pressure 118/89, pulse 84 and regular. LUNGS: Clear. CARDIAC: Normal S1, normal S2. ABDOMEN: Soft and nontender. ASSESSMENT: 1. Severely depressed left ventricular function. 2. Nonsustained ventricular tachycardia. 3. He has actually been on the HERVE inhibitors and beta-blockers for 3 months. PLAN: 1. We will try to do a thallium viability study tomorrow to see how much of his anterior wall might be viable. 2. Tentatively plan for defibrillator implantation on . Job ID: [id number]
[2019-06-04] MEDS: Atorvastatin Calcium 40 MG TAB PO SCH (21:44)
[2019-06-04] MEDS ORDERED: Sodium Chloride 0.65% Nasal 44 ML BOT EA NARE PRN (21:50)
[2019-06-05] MEDS: Melatonin 3 MG TAB PO PRN ×2 (00:09→20:40)
--- NOTE | 2019-06-05 05:58 | PDOC.FM ---
- Subjective Subjective: Pt had a short episode of non-sustained V-Tach, asymptomatic. He also experienced dyspnea, CXR revealed no changes. Today he is doing but remains with cyclical episodes of dyspnea at rest. He has an appetite. Denies chest pain, LE edema. - Objective Vital Signs & Weight: Vital Signs (12 hours) Temp Pulse Resp BP BP Pulse Ox 06/05/19 04:00 97.6 F 91 14 112/80 97 06/05/19 00:00 99 06/04/19 23:04 101 H 24 H 129/81 99 06/04/19 20:00 98.6 F 94 12 102/63 96 Weight Weight 79.515 kg I&O: 06/03/19 06/04/19 06/05/19 06:59 06:59 06:59 Intake Total 1033 2150 Output Total 1775 750 Balance -742 1400 Result Diagrams: 06/04/19 05:03 06/04/19 05:03 Phys Exam - Physical Examination Constitutional: NAD HEENT: PERRLA, moist MMs Respiratory: no wheezing, clear to auscultation bilateral Cardiovascular: RRR, no significant murmur Gastrointestinal: soft, non-tender Musculoskeletal: no edema Dx/Plan (1) Atypical chest pain Code(s): R07.89 - OTHER CHEST PAIN Status: Acute (2) Angina at rest Code(s): I20.8 - OTHER FORMS OF ANGINA PECTORIS Status: Acute (3) HTN (hypertension) Code(s): I10 - ESSENTIAL (PRIMARY) HYPERTENSION Status: Acute (4) HLD (hyperlipidemia) Code(s): E78.5 - HYPERLIPIDEMIA, UNSPECIFIED Status: Acute (5) BPH (benign prostatic hyperplasia) Code(s): N40.0 - BENIGN PROSTATIC HYPERPLASIA WITHOUT LOWER URINRY TRACT SYMP Status: Acute (6) Hx of bacterial endocarditis Code(s): Z86.79 - PERSONAL HISTORY OF OTHER DISEASES OF THE CIRCULATORY SYSTEM Status: Acute (7) History of placement of stent in LAD coronary artery Code(s): Z95.5 - PRESENCE OF CORONARY ANGIOPLASTY IMPLANT AND GRAFT Status: Acute (8) Elevated brain natriuretic peptide (BNP) level Code(s): R79.89 - OTHER SPECIFIED ABNORMAL FINDINGS OF BLOOD CHEMISTRY Status : Acute (9) Pleural effusion Code(s): J90 - PLEURAL EFFUSION, NOT ELSEWHERE CLASSIFIED Status: Acute (10) Coronary artery disease Code(s): I25.10 - ATHSCL HEART DISEASE OF [place] CORONARY ARTERY W/O ANG PCTRS Status: Acute (11) Systolic heart failure secondary to coronary artery disease Code(s): I50.20 - UNSPECIFIED SYSTOLIC (CONGESTIVE) HEART FAILURE; I25.10 - ATHSCL HEART DISEASE OF [place] CORONARY ARTERY W/O ANG PCTRS Status: Acute - Plan Plan: Pt is a 63 yo male with hx of CAD, stent placed in LAD, hx of endocarditis, HLD , HTN who presents for a 2 week history of cough, dyspnea, and chest pain found to have significant atherosclerosis in 3 vessels on cardiac cath. # CAD - 3 vessel disease # Atypical Chest Pain # Hx of LAD stent, CAD # Bilateral Pleural Effusions on admission Pt presents with chest pain secondary to cardiac etiology. He states he had 3 vessels with some degree of atherosclerosis when he received the LAD stent in 2004. He has an elevated BNP, although we do not know his baseline, but pt complained of dyspnea, cough during this time and has pleural effusions on CTA. Echo revealed EF 15-20%. Dr. Corea performed cardiac cath revealing 3 vessel CAD, PVD in R iliac; akinetic anterior wall, apex, inferior wall. Dr. Corea noted on 06/05/19 pt will undergo viability study to assess how much anterior wall is viable, Tentatively he will need a defibrillator implantation. - influenza neg, lipase WNL ,CRP elevated, D-DImer 1.43, ESR WNL. Procal neg. Trop indeterminate x 3. - Cards consult; appreciate recs - continued coreg, lisinopril, aspirin, started plavix. # HFrEF - as above # Dyspnea - secondary to poor oxygenation, heart failure. # Cough - improving - likely secondary to HF # Hx of Endocarditis # Chills Pt complains of chills. 8 years ago he had endocarditis affecting the stent. He was treated for 58 days. No source of infection although he has been on 2 weeks of augmentin then doxycycline for bronchitis. - no evidence on echo - blood cx negative # HTN - as above, well controlled # HLD - continue home meds, consider titrating up or switching medication # BPH - continue home meds # PVD R Iliac - statin therapy Fluids: None Diet: HH, NPO at midnight for stress VTE: lovenox Code: Full Dispo: < 2 midnight stay
[2019-06-05] MEDS: Nitroglycerin 2% Ointment 1 INCH/1 GM Packet TOP SCH ×3 (07:28→22:20)
--- NOTE | 2019-06-05 08:03 | PRG ---
DATE OF SERVICE: 06/04/2019 ADDENDUM: This is an addendum to the note of Dr. Jose Cutler. I agree with the assessment and plan of Dr. Cutler. Job ID: [id number]
[2019-06-05] MEDS ORDERED: Furosemide 40 MG/4 ML VIAL SLOW IVP SCH (09:00)
[2019-06-05] MEDS ORDERED: Potassium Chloride 20 MEQ TAB PO SCH (09:00)
[2019-06-05] MEDS ORDERED: Spironolactone 25 MG TAB PO SCH (09:00)
--- NOTE | 2019-06-05 09:24 | PRG ---
DATE OF SERVICE: 06/05/2019 SUBJECTIVE: Mr. Marin had some shortness of breath last night. He felt anxiety as well. He states that it was difficult to breathe. He is feeling somewhat better today. OBJECTIVE: VITAL SIGNS: His blood pressure today is high for him 136/83, pulse 88 and regular. LUNGS: Clear. CARDIAC: Normal S1 and normal S2. ABDOMEN: Soft and nontender. EXTREMITIES: There is no edema. ASSESSMENT: 1. Severe congestive heart failure with recurrent orthopnea last night. 2. Severe coronary artery disease as outlined in the chart with an extensive previous anterior infarct. PLAN: We are hoping to get a viability study to see whether there would be any potential benefit from percutaneously intervening on the LAD. I think the mid and distal anterior wall are akinetic, but there could be some viable muscle more proximally. Tentatively, planning on defibrillator on Monday. Given dextrose and furosemide today and add spironolactone. Prognosis long-term guarded to poor. Job ID: [id number]
--- NOTE | 2019-06-05 09:28 | RAD ---
CHEST 1 VIEW: Date: 06/04/19 HISTORY: Shortness of breath. COMPARISON: 06/01/19. FINDINGS: Stable borderline cardiomegaly, increased markings bilaterally. No confluent pneumonia, acute edema, pleural effusion, or other acute process. IMPRESSION: Stable chronic changes. No acute intrathoracic disease. POS: [facility]
[2019-06-05] MEDS: Aspirin 325 mg Enteric Coated Tablet PO SCH (10:03)
[2019-06-05] MEDS: Carvedilol 3.125 MG TAB PO SCH ×2 (10:03→18:21)
[2019-06-05] MEDS: Clopidogrel Bisulfate 75 MG TAB PO SCH (10:04)
[2019-06-05] MEDS: Lisinopril 10 MG TAB PO SCH (10:04)
[2019-06-05] MEDS: Nicotine 14 MG PATCH TD SCH (14:37)
[2019-06-05] MEDS: Enoxaparin Sodium 40 MG/0.4 ML SYRINGE SC SCH (20:32)
[2019-06-05] MEDS: Atorvastatin Calcium 40 MG TAB PO SCH (20:33)
[2019-06-05] MEDS: Tamsulosin HCl 0.4 MG CAP PO SCH (20:33)
[2019-06-06 05:16] LABS: Anion Gap 12 mmol/L (10-20); BUN (Urea Nitrogen) 23 mg/dL (8.4-25.7); Calc. Creatinine Clearance 79 mL/min (70-130); Carbon Dioxide 23 mmol/L (23-31); Chloride 108 mmol/L (98-107); Estimated GFR-MDRD 70; Glucose 101 mg/dL (80-115); Sodium 139 mmol/L (136-145)
--- NOTE | 2019-06-06 06:08 | PDOC.FM ---
- Subjective Subjective: Pt is doing well today. He is tolerating walking. He denies chest pain, LE edema. He does have episodes of dyspnea at rest. - Objective Vital Signs & Weight: Vital Signs (12 hours) Temp Pulse Resp BP BP Pulse Ox 06/06/19 03:35 98.3 F 85 16 93/54 L 95 06/05/19 23:24 98.5 F 77 16 95/63 97 06/05/19 19:23 98.3 F 76 16 101/63 95 Weight Weight 77.564 kg I&O: 06/04/19 06/05/19 06/06/19 06:59 06:59 06:59 Intake Total 2150 650 Output Total 750 2900 Balance 1400 -2250 Result Diagrams: 06/04/19 05:03 06/06/19 04:31 Phys Exam - Physical Examination Constitutional: NAD Respiratory: no wheezing, clear to auscultation bilateral Cardiovascular: RRR, no significant murmur Gastrointestinal: soft, non-tender, no distention Musculoskeletal: no edema Dx/Plan (1) Atypical chest pain Code(s): R07.89 - OTHER CHEST PAIN Status: Acute (2) Angina at rest Code(s): I20.8 - OTHER FORMS OF ANGINA PECTORIS Status: Acute (3) HTN (hypertension) Code(s): I10 - ESSENTIAL (PRIMARY) HYPERTENSION Status: Acute (4) HLD (hyperlipidemia) Code(s): E78.5 - HYPERLIPIDEMIA, UNSPECIFIED Status: Acute (5) BPH (benign prostatic hyperplasia) Code(s): N40.0 - BENIGN PROSTATIC HYPERPLASIA WITHOUT LOWER URINRY TRACT SYMP Status: Acute (6) Hx of bacterial endocarditis Code(s): Z86.79 - PERSONAL HISTORY OF OTHER DISEASES OF THE CIRCULATORY SYSTEM Status: Acute (7) History of placement of stent in LAD coronary artery Code(s): Z95.5 - PRESENCE OF CORONARY ANGIOPLASTY IMPLANT AND GRAFT Status: Acute (8) Elevated brain natriuretic peptide (BNP) level Code(s): R79.89 - OTHER SPECIFIED ABNORMAL FINDINGS OF BLOOD CHEMISTRY Status : Acute (9) Pleural effusion Code(s): J90 - PLEURAL EFFUSION, NOT ELSEWHERE CLASSIFIED Status: Acute (10) Coronary artery disease Code(s): I25.10 - ATHSCL HEART DISEASE OF [place] CORONARY ARTERY W/O ANG PCTRS Status: Acute (11) Systolic heart failure secondary to coronary artery disease Code(s): I50.20 - UNSPECIFIED SYSTOLIC (CONGESTIVE) HEART FAILURE; I25.10 - ATHSCL HEART DISEASE OF [place] CORONARY ARTERY W/O ANG PCTRS Status: Acute - Plan Plan: Pt is a 63 yo male with hx of CAD, stent placed in LAD, hx of endocarditis, HLD , HTN who presents for a 2 week history of cough, dyspnea, and chest pain found to have significant atherosclerosis in 3 vessels on cardiac cath. # CAD - 3 vessel disease # Atypical Chest Pain # Hx of LAD stent, CAD # Bilateral Pleural Effusions on admission Pt presents with chest pain secondary to cardiac etiology. He states he had 3 vessels with some degree of atherosclerosis when he received the LAD stent in 2004. He has an elevated BNP, although we do not know his baseline, but pt complained of dyspnea, cough during this time and has pleural effusions on CTA. Echo revealed EF 15-20%. Dr. Corea performed cardiac cath revealing 3 vessel CAD, PVD in R iliac; akinetic anterior wall, apex, inferior wall. Dr. Corea noted on 06/05/19 pt will undergo viability study to assess how much anterior wall is viable, Tentatively he will need a defibrillator implantation, possibly tomorrow. - influenza neg, lipase WNL ,CRP elevated, D-Dimer 1.43, ESR WNL. Procal neg. Trop indeterminate x 3. - Cards consult; appreciate recs - continued coreg, lisinopril, aspirin, started plavix. Added spironolactone 06/06. # HFrEF - as above # Dyspnea - secondary to poor oxygenation, heart failure. # Cough - improving - likely secondary to HF # Hx of Endocarditis # Chills Pt complains of chills. 8 years ago he had endocarditis affecting the stent. He was treated for 58 days. No source of infection although he has been on 2 weeks of augmentin then doxycycline for bronchitis. - no evidence on echo - blood cx negative # HTN - as above, well controlled # HLD - continue home meds, consider titrating up or switching medication # BPH - continue home meds # PVD R Iliac - statin therapy Fluids: None Diet: HH VTE: lovenox Code: Full Dispo: > 2 midnight stay
[2019-06-06] MEDS: Nitroglycerin 2% Ointment 1 INCH/1 GM Packet TOP SCH ×3 (06:35→21:13)
[2019-06-06] MEDS: Clopidogrel Bisulfate 75 MG TAB PO SCH (08:24)
[2019-06-06] MEDS: Carvedilol 3.125 MG TAB PO SCH ×2 (08:24→17:34)
[2019-06-06] MEDS: Lisinopril 10 MG TAB PO SCH (08:24)
[2019-06-06] MEDS: Aspirin 325 mg Enteric Coated Tablet PO SCH (08:24)
[2019-06-06] MEDS: Spironolactone 25 MG TAB PO SCH (08:25)
--- NOTE | 2019-06-06 09:33 | PRG ---
DATE OF SERVICE: 06/06/2019 SUBJECTIVE: Mr. Marin had a really good diuresis yesterday and feels better. He is -2 L yesterday. He is breathing well. OBJECTIVE: VITAL SIGNS: Blood pressure 102/70, pulse 87 and regular. LUNGS: Clear. CARDIAC: Normal S1, normal S2. ASSESSMENT: 1. Severely depressed left ventricular function. 2. Congestive heart failure, systolic, acute on chronic, improved. 3. Severe inoperable coronary artery disease. 4. Nonsustained ventricular tachycardia. PLAN: 1. Proceed to defibrillator implantation tomorrow. 2. Viability study being done to consider at some point whether he would be a candidate for percutaneous therapy of left anterior descending artery or whether . Job ID: [id number]
--- NOTE | 2019-06-06 10:57 | PDOC.EVN ---
Event Note - Event Note Event Note: 63yo with severe ischemic cardiomyopathy and EF 10-15%. Thallium viability performed today, results pending, and plans for defibrillator placement tomorrow. Intermittent non-sustained Vtach, Coreg has been restarted. Agree with Dr. Cutler's assessment and plan with exceptions noted. Written by Dr. Dru Rebolledo.
[2019-06-06] MEDS: Nicotine 14 MG PATCH TD SCH (14:56)
[2019-06-06] MEDS: Tamsulosin HCl 0.4 MG CAP PO SCH (19:34)
[2019-06-06] MEDS: Atorvastatin Calcium 40 MG TAB PO SCH (19:34)
[2019-06-06] MEDS: Enoxaparin Sodium 40 MG/0.4 ML SYRINGE SC SCH (19:34)
[2019-06-06] MEDS: Melatonin 3 MG TAB PO PRN (20:48)
[2019-06-07 04:56] LABS: #Basophils 0.1 thou/uL (0.0-0.2); #Eosinphils 0.1 thou/uL (0.0-0.7); #Lymphocytes 2.6 thou/uL (1.20-3.40); #Monocytes 0.6 thou/uL (0.11-0.59); #Neutrophils 3.6 thou/uL (1.40-6.50); %Lymphocytes 36.9 % (21.0-51.0); %Monocytes 8.7 % (0.0-10.0); %Neutrophils 51.4 % (42.0-75.0); Hemoglobin 16.6 g/dL (14.0-18.0); Mean Corpuscular HGB CONC 32.5 g/dL (32.0-36.0); Mean Corpuscular Hemoglobin 32.8 pg (27.0-31.0); Mean Platelet Volume 7.9 fL (7.4-10.4); Platelet Count 143 thou/uL (130-400); RBC Distribution Width 12.3 % (11.5-14.5); Red Blood Cell (RBC) Count 5.06 mill/uL (4.70-6.10)
[2019-06-07] MEDS: Nitroglycerin 2% Ointment 1 INCH/1 GM Packet TOP SCH ×2 (05:15→14:58)
[2019-06-07] MEDS: Carvedilol 3.125 MG TAB PO SCH ×2 (05:16→17:00)
[2019-06-07 05:24] LABS: Anion Gap 10 mmol/L (10-20); BUN (Urea Nitrogen) 21 mg/dL (8.4-25.7); Calc. Creatinine Clearance 84 mL/min (70-130); Calcium 8.9 mg/dL (7.8-10.44); Carbon Dioxide 24 mmol/L (23-31); Chloride 108 mmol/L (98-107); Estimated GFR-MDRD 73; Glucose 96 mg/dL (80-115); Potassium 4.4 mmol/L (3.5-5.1); Sodium 138 mmol/L (136-145)
--- NOTE | 2019-06-07 06:09 | PDOC.FM ---
- Subjective Subjective: Pt is unchanged through the night. He slept well. He is tolerating ambulation. He is pending defib implantation today at 1300. - Objective Vital Signs & Weight: Vital Signs (12 hours) Temp Pulse Resp BP BP Pulse Ox 06/07/19 04:01 97.6 F 91 16 108/77 93 L 06/06/19 19:29 97.7 F 81 18 112/71 95 Weight Weight 78.471 kg I&O: 06/05/19 06/06/19 06/07/19 06:59 06:59 06:59 Intake Total 650 240 Output Total 2900 300 Balance -2250 -60 Result Diagrams: 06/07/19 04:42 06/07/19 04:42 Phys Exam - Physical Examination Constitutional: NAD Respiratory: no wheezing, clear to auscultation bilateral Cardiovascular: RRR, no significant murmur Gastrointestinal: soft, no distention Musculoskeletal: no edema, pulses present Dx/Plan (1) Atypical chest pain Code(s): R07.89 - OTHER CHEST PAIN Status: Acute (2) Angina at rest Code(s): I20.8 - OTHER FORMS OF ANGINA PECTORIS Status: Acute (3) HTN (hypertension) Code(s): I10 - ESSENTIAL (PRIMARY) HYPERTENSION Status: Acute (4) HLD (hyperlipidemia) Code(s): E78.5 - HYPERLIPIDEMIA, UNSPECIFIED Status: Acute (5) BPH (benign prostatic hyperplasia) Code(s): N40.0 - BENIGN PROSTATIC HYPERPLASIA WITHOUT LOWER URINRY TRACT SYMP Status: Acute (6) Hx of bacterial endocarditis Code(s): Z86.79 - PERSONAL HISTORY OF OTHER DISEASES OF THE CIRCULATORY SYSTEM Status: Acute (7) History of placement of stent in LAD coronary artery Code(s): Z95.5 - PRESENCE OF CORONARY ANGIOPLASTY IMPLANT AND GRAFT Status: Acute (8) Elevated brain natriuretic peptide (BNP) level Code(s): R79.89 - OTHER SPECIFIED ABNORMAL FINDINGS OF BLOOD CHEMISTRY Status : Acute (9) Pleural effusion Code(s): J90 - PLEURAL EFFUSION, NOT ELSEWHERE CLASSIFIED Status: Acute (10) Coronary artery disease Code(s): I25.10 - ATHSCL HEART DISEASE OF [place] CORONARY ARTERY W/O ANG PCTRS Status: Acute (11) Systolic heart failure secondary to coronary artery disease Code(s): I50.20 - UNSPECIFIED SYSTOLIC (CONGESTIVE) HEART FAILURE; I25.10 - ATHSCL HEART DISEASE OF [place] CORONARY ARTERY W/O ANG PCTRS Status: Acute - Plan Plan: Pt is a 63 yo male with hx of CAD, stent placed in LAD, hx of endocarditis, HLD , HTN who presents for a 2 week history of cough, dyspnea, and chest pain found to have significant atherosclerosis in 3 vessels on cardiac cath. # CAD - 3 vessel disease # Atypical Chest Pain # Hx of LAD stent, CAD # Bilateral Pleural Effusions on admission Pt presents with chest pain secondary to cardiac etiology. He states he had 3 vessels with some degree of atherosclerosis when he received the LAD stent in 2004. He has an elevated BNP, although we do not know his baseline, but pt complained of dyspnea, cough during this time and has pleural effusions on CTA. Echo revealed EF 15-20%. Dr. Corea performed cardiac cath revealing 3 vessel CAD, PVD in R iliac; akinetic anterior wall, apex, inferior wall. Dr. Corea noted on 06/05/19 pt will undergo viability study to assess how much anterior wall is viable - results pending, Tentatively he will need a defibrillator implantation, possibly today at 1300. - influenza neg, lipase WNL ,CRP elevated, D-Dimer 1.43, ESR WNL. Procal neg. Trop indeterminate x 3. - Cards consult; appreciate recs - continued coreg, lisinopril, aspirin, started plavix. Added spironolactone 06/06. # HFrEF - as above # Dyspnea - secondary to poor oxygenation, heart failure. # Cough - improving - likely secondary to HF # Hx of Endocarditis # Chills Pt complains of chills. 8 years ago he had endocarditis affecting the stent. He was treated for 58 days. No source of infection although he has been on 2 weeks of augmentin then doxycycline for bronchitis. - no evidence on echo - blood cx negative # HTN - as above, well controlled # HLD - continue home meds, consider titrating up or switching medication # BPH - continue home meds # PVD R Iliac - statin therapy Fluids: None Diet: HH VTE: lovenox Code: Full Dispo: > 2 midnight stay
--- NOTE | 2019-06-07 07:46 | CON ---
DATE OF CONSULTATION: 06/05/2019 Dictated by FAY Strickland, as scribe for Dr. Castillo. REASON FOR CONSULTATION: Chronic systolic heart failure with severely reduced ejection fraction, ischemic cardiomyopathy. HISTORY OF PRESENT ILLNESS: Mr. Marin is a 63-year-old gentleman with a history of an anterior myocardial infarction in the early 1999s with stent placement. Approximately 10 years ago, he did have an endocarditis. He has a longstanding history of ischemic cardiomyopathy as well. He began to have progressive shortness of breath with chest tightness and pain in both arms with fever and chills as well, and presented to the emergency room for further evaluation. An echocardiogram was done, showing severely depressed left ventricular function, estimated at 15% to 20%, and there is also [id number] mitral regurgitation, and he underwent left heart catheterization, that showed diffuse coronary artery disease with extensive chronic lesions and 90% blockage in the proximal LAD and 95% blockage in the mid LAD. There was plan for him to undergo a viability study to determine if high- risk PCI is warranted. Electrophysiology consultation is requested for consideration of an ICD with his chronic ischemic cardiomyopathy. REVIEW OF SYSTEMS: A 12-point review of systems is negative except that listed above in HPI. PAST MEDICAL HISTORY: 1. Myocardial infarction in early 1999, status post PCAI. 2. Coronary artery disease. 3. Endocarditis. 4. Ischemic cardiomyopathy. ALLERGIES: NO KNOWN DRUG ALLERGIES. HOME MEDICATIONS: Include; 1. Lisinopril. 2. Carvedilol. 3. Simvastatin. 4. Tamsulosin. FAMILY HISTORY: Noncontributory. SOCIAL HISTORY: Denies alcohol, tobacco, or illicit drug use. Daughter is present for support. OBJECTIVE: VITAL SIGNS: Temperature 97.6, pulse 88, blood pressure 136/81, respirations 16, and oxygen is 97% on 2L via nasal cannula. GENERAL: The patient is alert and oriented. Speech is clear. Affect is appropriate. He is in no apparent distress at the time of exam. NECK: Supple without jugular venous distention. Carotids are without bruit. There is no lymphadenopathy present. LUNGS: Clear to auscultation bilaterally without wheezes, crackles, or rhonchi. HEART: Rate is irregularly irregular. PMI is nonpalpable. ABDOMEN: Soft and nontender without palpable masses. EXTREMITIES: Warm and dry to touch without clubbing, cyanosis, or edema. Hepatojugular reflux is negative. NEUROLOGIC: Grossly intact and nonfocal. Gait was not assessed. DATABASE: Laboratory unremarkable. Chemistry, potassium 3.9. Troponin of 0.064. Creatinine 0.96. Telemetry and EKG show sinus rhythm with premature ventricular complexes. Echocardiogram; ejection fraction 15% to 20% with [id number] mitral regurgitation. IMPRESSION: 1. Longstanding ischemic cardiomyopathy with severely reduced ejection fraction. 2. Coronary artery disease with prior anterior myocardial infarction, now with diffuse coronary artery disease as detailed above. 3. Premature ventricular complexes. RECOMMENDATIONS AND PLAN: Mr. Marin is a pleasant 63-year-old gentleman with longstanding ischemic cardiomyopathy and severely reduced ejection fraction. He presents with shortness of breath and was found to have significant coronary artery disease by left heart catheterization. There is a plan for him to undergo a viability study to determine if high-risk PCI is indicated. That being said, he has a longstanding history of coronary artery disease with severely depressed ejection fraction, less than 30%, in spite of medical management. With that in mind, he could potentially benefit from placement of a single-chamber ICD as primary prevention for sudden cardiac from ventricular arrhythmias in the setting of cardiomyopathy. I had a discussion about defibrillator therapy. We discussed how devices are placed and potential risks associated, including pain, bruising, infection, pneumothorax, pericardial effusion, possible need for chest tube placement, lead dislodgement with possible need for lead revision and/or device explant. The patient voices understanding and wishes to proceed with ICD implant, which will likely be done on Monday. If atrial arrhythmias are seen before that time, I may decide to do a dual-chamber system in place of a single-chamber system for arrhythmia management. Thank you for allowing me to participate in the care of this patient. Job ID: [id number] [facility]
--- NOTE | 2019-06-07 08:50 | NM ---
NM Myocardial Thallium Scan HISTORY: Chest pain, shortness of breath Radiopharmaceutical: 3.7 mCi thallium 201 injected intravenously for viability scan. FINDINGS: There is a large fixed defect in the apex extending into the anterior and inferior and sept al spangler on the initial 15 minute and 24 are delayed images. IMPRESSION: No evidence of viability in the apex, distal anteroseptal and inferoseptal spangler.
[2019-06-07] MEDS: Lisinopril 10 MG TAB PO SCH (09:24)
[2019-06-07] MEDS: Spironolactone 25 MG TAB PO SCH (09:25)
[2019-06-07] MEDS ORDERED: Lidocaine 1% (PF) 30 ML VIAL ONE (10:12)
[2019-06-07] MEDS ORDERED: Iopamidol 370 76% 50 ML VIAL FS ONE (10:44)
[2019-06-07] MEDS ORDERED: Propofol 500 MG/50 ML VIAL ONE (13:24)
[2019-06-07] MEDS ORDERED: Ketamine 50 MG/ML (10ML VIAL) ONE (13:24)
[2019-06-07] MEDS: Nicotine 14 MG PATCH TD SCH (14:57)
[2019-06-07] MEDS: Clopidogrel Bisulfate 75 MG TAB PO SCH (17:00)
[2019-06-07] MEDS: Aspirin 325 mg Enteric Coated Tablet PO SCH (17:00)
[2019-06-07] MEDS: Acetaminophen 325 MG TAB PO PRN (17:45)
--- NOTE | 2019-06-07 19:16 | PRG ---
DATE OF SERVICE: 06/07/2019 Mr. Marin underwent successful defibrillator implantation today. He is currently resting. His blood pressure is relatively low, but he is feeling okay. The plan is to go home tomorrow to follow up in our office in 1 or 2 weeks, currently on spironolactone 25 mg a day, aspirin 325 mg a day, Coreg 3.125 mg twice a day, Plavix 75 mg a day, lisinopril 10 mg a day, atorvastatin 40 mg a day. Long-term prognosis is guarded to poor. The patient's family well aware of that. A myocardial viability study did not reveal any evidence of viable muscle in the anterior wall just scarred. The patient had a defibrillator placed today. Job ID: [id number]
[2019-06-07] MEDS: Tamsulosin HCl 0.4 MG CAP PO SCH (20:55)
[2019-06-07] MEDS: Atorvastatin Calcium 40 MG TAB PO SCH (20:57)
[2019-06-08] MEDS: Acetaminophen 325 MG TAB PO PRN (03:28)
[2019-06-08 06:17] LABS: Anion Gap 13 mmol/L (10-20); BUN (Urea Nitrogen) 23 mg/dL (8.4-25.7); Calc. Creatinine Clearance 80 mL/min (70-130); Calcium 8.7 mg/dL (7.8-10.44); Carbon Dioxide 21 mmol/L (23-31); Chloride 110 mmol/L (98-107); Estimated GFR-MDRD 71; Glucose 118 mg/dL (80-115); Potassium 4.2 mmol/L (3.5-5.1); Sodium 140 mmol/L (136-145)
--- NOTE | 2019-06-08 06:27 | PDOC.FM ---
- Subjective Subjective: Pt is feeling well this AM and reading about his AICD. No questions. Ready to go home. - Objective MAR Reviewed: Yes Vital Signs & Weight: Vital Signs (12 hours) Temp Pulse Resp BP BP Pulse Ox 06/08/19 03:22 97.6 F 84 14 107/82 95 06/07/19 23:44 97.5 F L 83 16 112/65 95 06/07/19 20:57 93 L 06/07/19 19:47 98.5 F 66 16 95/56 L 93 L Weight Weight 77.337 kg I&O: 06/06/19 06/07/19 06/08/19 06:59 06:59 06:59 Intake Total 650 240 920 Output Total 2900 300 550 Balance -2250 -60 370 Result Diagrams: 06/07/19 04:42 06/08/19 05:23 Phys Exam - Physical Examination Constitutional: NAD Respiratory: no wheezing, clear to auscultation bilateral Cardiovascular: RRR Gastrointestinal: soft Musculoskeletal: no edema, pulses present Psychiatric: normal affect, A&O x 3 Dx/Plan (1) Atypical chest pain Code(s): R07.89 - OTHER CHEST PAIN Status: Acute (2) BPH (benign prostatic hyperplasia) Code(s): N40.0 - BENIGN PROSTATIC HYPERPLASIA WITHOUT LOWER URINRY TRACT SYMP Status: Acute (3) Coronary artery disease Code(s): I25.10 - ATHSCL HEART DISEASE OF [place] CORONARY ARTERY W/O ANG PCTRS Status: Acute (4) HLD (hyperlipidemia) Code(s): E78.5 - HYPERLIPIDEMIA, UNSPECIFIED Status: Acute (5) HTN (hypertension) Code(s): I10 - ESSENTIAL (PRIMARY) HYPERTENSION Status: Acute (6) History of placement of stent in LAD coronary artery Code(s): Z95.5 - PRESENCE OF CORONARY ANGIOPLASTY IMPLANT AND GRAFT Status: Acute (7) Hx of bacterial endocarditis Code(s): Z86.79 - PERSONAL HISTORY OF OTHER DISEASES OF THE CIRCULATORY SYSTEM Status: Acute (8) Systolic heart failure secondary to coronary artery disease Code(s): I50.20 - UNSPECIFIED SYSTOLIC (CONGESTIVE) HEART FAILURE; I25.10 - ATHSCL HEART DISEASE OF [place] CORONARY ARTERY W/O ANG PCTRS Status: Acute - Plan Plan: Pt is a 63 yo male with hx of CAD, stent placed in LAD, hx of endocarditis, HLD , HTN who presents for a 2 week history of cough, dyspnea, and chest pain found to have significant atherosclerosis in 3 vessels on cardiac cath. # CAD - 3 vessel disease # Atypical Chest Pain # Hx of LAD stent, CAD # Bilateral Pleural Effusions on admission Pt presents with chest pain secondary to cardiac etiology. He states he had 3 vessels with some degree of atherosclerosis when he received the LAD stent in 2004. He has an elevated BNP, although we do not know his baseline, but pt complained of dyspnea, cough during this time and has pleural effusions on CTA. Echo revealed EF 15-20%. Dr. Corea performed cardiac cath revealing 3 vessel CAD, PVD in R iliac; akinetic anterior wall, apex, inferior wall. Dr. Corea noted on 06/05/19 pt will undergo viability study to assess how much anterior wall is viable. AICD placed 06/07. - influenza neg, lipase WNL ,CRP elevated, D-Dimer 1.43, ESR WNL. Procal neg. Trop indeterminate x 3. - Cards consult; appreciate recs - continued coreg, lisinopril, aspirin, started plavix. Added spironolactone 06/06. # HFrEF - as above # Dyspnea - secondary to poor oxygenation, heart failure. # Cough - improving - likely secondary to HF # Hx of Endocarditis # Chills Pt complains of chills. 8 years ago he had endocarditis affecting the stent. He was treated for 58 days. No source of infection although he has been on 2 weeks of augmentin then doxycycline for bronchitis. - no evidence on echo - blood cx negative # HTN - as above, well controlled # HLD - continue home meds, consider titrating up or switching medication # BPH - continue home meds # PVD R Iliac - statin therapy Fluids: None Diet: HH VTE: lovenox Code: Full Dispo: ready for discharge.
[2019-06-08 08:25] VITALS: TEMP 97.8
[2019-06-08] MEDS: Carvedilol 3.125 MG TAB PO SCH (09:32)
[2019-06-08] MEDS: Spironolactone 25 MG TAB PO SCH (09:32)
[2019-06-08] MEDS: Aspirin 325 mg Enteric Coated Tablet PO SCH (09:32)
[2019-06-08] MEDS: Clopidogrel Bisulfate 75 MG TAB PO SCH (09:33)
[2019-06-08] MEDS: Lisinopril 10 MG TAB PO SCH (09:33)
[2019-06-08 12:09] VITALS: BP 119/72
== END 2019-06-08 12:16 | disposition home or self-care (01) | DRG 224 ==
LOC: ERS 09:36 → 2SW 13:21 → OBSVTOIN 13:30 → 2SW 13:30
PROVIDERS: ADMIT Family Medicine; ATTEND Family Medicine
PROC: 4A023N7 Measurement of Cardiac Sampling and Pressure, Left Heart, Percutaneous Approach (ICD-10-PCS; 2019-06-01)
PROC: B2111ZZ Fluoroscopy of Multiple Coronary Arteries using Low Osmolar Contrast (ICD-10-PCS; 2019-06-01)
PROC: B2151ZZ Fluoroscopy of Left Heart using Low Osmolar Contrast (ICD-10-PCS; 2019-06-01)
PROC: 0JH608Z Insertion of Defibrillator Generator into Chest Subcutaneous Tissue and Fascia, Open Approach (ICD-10-PCS; principal; 2019-06-07)
PROC: 02HK3KZ Insertion of Defibrillator Lead into Right Ventricle, Percutaneous Approach (ICD-10-PCS; 2019-06-07)
DX: I25.119 Atherosclerotic heart disease of native coronary artery with unspecified angina pectoris (principal); I50.23 Acute on chronic systolic (congestive) heart failure; E78.5 Hyperlipidemia, unspecified; I10 Essential (primary) hypertension; N40.0 Benign prostatic hyperplasia without lower urinary tract symptoms; I25.5 Ischemic cardiomyopathy; I08.1 Rheumatic disorders of both mitral and tricuspid valves; I25.2 Old myocardial infarction; Z86.79 Personal history of other diseases of the circulatory system; I49.3 Ventricular premature depolarization; I73.9 Peripheral vascular disease, unspecified; Z95.5 Presence of coronary angioplasty implant and graft
CPT/HCPCS: 33249; 36005; 36245; 36415; 71045; 71275; 75820; 76936; 76942; 78466; 80048; 80053; 80061; 81003; 81015; 82550; 82553; 83605; 83690; 83880; 84145; 84484; 85025; 85379; 85652; 86140; 87040; 87804; 93005; 93306; 93458; 93641; 93798; 94760; 96360; 99152; 99153; A9505; C1769; C1777; C1786; J0690; J1644; J1650; J1940; J2001; J2250; J2270; J2704; J3010; J3490; Q9967

== ENCOUNTER 2020-01-16 14:03 | Emergency (ER) | payer SELFPAY ==
[2020-01-16 15:15] LABS: #Eosinphils 0.1 thou/uL (0.0-0.7); #Lymphocytes 1.4 thou/uL (1.20-3.40); #Monocytes 0.6 thou/uL (0.11-0.59); #Neutrophils 3.5 thou/uL (1.40-6.50); %Basophils 0.8 % (0.0-1.0); %Eosinophils 2.5 % (0.0-10.0); %Lymphocytes 24.1 % (21.0-51.0); %Monocytes 10.1 % (0.0-10.0); %Neutrophils 62.6 % (42.0-75.0); Hemoglobin 14.9 g/dL (14.0-18.0); Mean Corpuscular HGB CONC 32.7 g/dL (32.0-36.0); Mean Corpuscular Hemoglobin 34.2 pg (27.0-31.0); Mean Platelet Volume 7.3 fL (7.4-10.4); Platelet Count 133 thou/uL (130-400); RBC Distribution Width 11.2 % (11.5-14.5); Red Blood Cell (RBC) Count 4.36 mill/uL (4.70-6.10); White Blood Cell (WBC) Count 5.6 thou/uL (4.8-10.8)
[2020-01-16 15:37] LABS: Acetaminophen Less than 6.0 mcg/mL (10.0-30.0); Alcohol Less than 10 mg/dL (Less than 10); Salicylate Less than 8.0 mg/dL (15.0-30.0)
[2020-01-16 15:38] LABS: ALT (SGPT) 14 U/L (8-55); AST (SGOT) 15 U/L (5-34); Albumin 3.7 g/dL (3.4-4.8); Alkaline Phosphatase 74 U/L (40-110); Anion Gap 10 mmol/L (10-20); BUN (Urea Nitrogen) 26 mg/dL (8.4-25.7); Bilirubin, Total 0.5 mg/dL (0.2-1.2); Calc. Creatinine Clearance 0 mL/min (70-130); Carbon Dioxide 27 mmol/L (23-31); Chloride 105 mmol/L (98-107); Estimated GFR-MDRD 69; Globulin 2.6 g/dL (2.4-3.5); Glucose 131 mg/dL (80-115); Potassium 3.9 mmol/L (3.5-5.1); Protein, Total 6.3 g/dL (5.8-8.1); Sodium 138 mmol/L (136-145)
[2020-01-16 16:56] LABS: Medtox Reader # READER 4
[2020-01-16 16:57] LABS: Amphetamine Detected (NotDetected); Barbiturates Screen Not Detected (NotDetected); Benzodiazepine Screen Detected (NotDetected); Cocaine Metabolite Screen Not Detected (NotDetected); Medtox Control Line Valid? VALID (VALID); Methadone Not Detected (NotDetected); Methamphetamine Detected (NotDetected); Opiate Screen Not Detected (NotDetected); Oxycodone Screen Not Detected (NotDetected); Phencyclidine (PCP) Not Detected (NotDetected); THC/Cannabinoid Screen Not Detected (NotDetected); Tricyclic Screen Not Detected (NotDetected)
== END 2020-01-16 17:58 | disposition home or self-care (01) ==
LOC: ERS 14:03
DX: F15.10 Other stimulant abuse, uncomplicated (principal); J44.9 Chronic obstructive pulmonary disease, unspecified; I10 Essential (primary) hypertension; F17.210 Nicotine dependence, cigarettes, uncomplicated
CPT/HCPCS: 36415; 80053; 80306; 80307; 84443; 85025; 99285

== ENCOUNTER 2022-09-22 20:55 | Emergency (ER) | payer MEDICARE, SELFPAY ==
[~2022-09-22 20:55] MED LIST: Iopamidol-370 76% 500 ML MDV (1 ML CHARGE) ONE
[2022-09-22] MEDS ORDERED: Morphine 4 MG/ML VIAL ONE (21:52)
[2022-09-22 22:06] LABS: #Basophils 0.1 thou/uL (0.0-0.2); #Eosinphils 0.2 thou/uL (0.0-0.7); #Lymphocytes 1.9 thou/uL (1.20-3.40); #Monocytes 0.7 thou/uL (0.11-0.59); #Neutrophils 5.4 thou/uL (1.40-6.50); %Basophils 1.1 % (0.0-1.0); %Eosinophils 2.2 % (0.0-10.0); %Lymphocytes 23.1 % (21.0-51.0); %Monocytes 8.4 % (0.0-10.0); %Neutrophils 65.2 % (42.0-75.0); Hemoglobin 15.4 g/dL (14.0-18.0); Mean Corpuscular HGB CONC 32.3 g/dL (32.0-36.0); Mean Corpuscular Hemoglobin 32.7 pg (27.0-31.0); Mean Platelet Volume 6.9 fL (7.4-10.4); Platelet Count 150 10x3/uL (130-400); RBC Distribution Width 11.4 % (11.5-14.5); White Blood Cell (WBC) Count 8.2 10x3/uL (4.8-10.8)
[2022-09-22 22:28] LABS: Prothrombin Time 13.6 sec (12.0-14.7)
[2022-09-22 22:45] LABS: ALT (SGPT) 17 U/L (8-55); AST (SGOT) 24 U/L (5-34); Albumin 3.8 g/dL (3.4-4.8); Alkaline Phosphatase 72 U/L (40-110); Anion Gap 12 mmol/L (10-20); BUN (Urea Nitrogen) 20 mg/dL (8.4-25.7); Bilirubin, Total 0.3 mg/dL (0.2-1.2); Calc. Creatinine Clearance 0 mL/min (70-130); Calcium 9.7 mg/dL (7.8-10.44); Carbon Dioxide 22 mmol/L (23-31); Chloride 107 mmol/L (98-107); Estimated GFR 76; Globulin 2.9 g/dL (2.4-3.5); Glucose 112 mg/dL (80-115); Potassium 4.2 mmol/L (3.5-5.1); Protein, Total 6.7 g/dL (5.8-8.1); Sodium 137 mmol/L (136-145)
[2022-09-22] MEDS ORDERED: Lidocaine 1% w/Epinephrine 1:100K 20 ML VIAL ONE (22:45)
[2022-09-22] MEDS ORDERED: CEFAZOLIN 2 GM VIAL ONE (22:55)
[2022-09-22] MEDS ORDERED: Boostrix 0.5 ML (Tdap) VIAL (>/=7 yrs of age) ONE (22:55)
== END 2022-09-23 01:39 | disposition home or self-care (01) ==
LOC: ERS 20:55
DX: S91.011A Laceration without foreign body, right ankle, initial encounter (principal); S30.811A Abrasion of abdominal wall, initial encounter; J44.9 Chronic obstructive pulmonary disease, unspecified; I25.2 Old myocardial infarction; I11.0 Hypertensive heart disease with heart failure; I50.9 Heart failure, unspecified; F17.210 Nicotine dependence, cigarettes, uncomplicated; Z23 Encounter for immunization; W26.8XXA Contact with other sharp object(s), not elsewhere classified, initial encounter
CPT/HCPCS: 12002; 36415; 74177; 80053; 85025; 85610; 85730; 90471; 90715; 96365; 96375; J2270

== ENCOUNTER 2023-05-08 18:49 | Inpatient (IN) | payer MEDICARE, OTHER ==
[2023-05-08 19:59] LABS: #Monocytes 0.2 thou/uL (0.11-0.59); #Neutrophils 10.8 thou/uL (1.40-6.50); %Basophils 0.3 % (0.0-1.0); Hemoglobin 12.9 g/dL (14.0-18.0); Mean Corpuscular HGB CONC 32.3 g/dL (32.0-36.0); Mean Corpuscular Hemoglobin 31.9 pg (27.0-31.0); Mean Corpuscular Volume 98.8 fl (78.0-98.0); Mean Platelet Volume 8.8 fL (7.4-10.4); Platelet Count 129 10x3/uL (130-400); RBC Distribution Width 14.3 % (11.5-14.5); Red Blood Cell (RBC) Count 4.05 mill/uL (4.70-6.10); White Blood Cell (WBC) Count 11.7 10x3/uL (4.8-10.8)
[2023-05-08 20:31] LABS: ALT (SGPT) 16 U/L (8-55); AST (SGOT) 18 U/L (5-34); Albumin 3.7 g/dL (3.4-4.8); Alkaline Phosphatase 75 U/L (40-110); Anion Gap 14 mmol/L (10-20); BUN (Urea Nitrogen) 19 mg/dL (8.4-25.7); Bilirubin, Total 0.5 mg/dL (0.2-1.2); Calc. Creatinine Clearance 0 mL/min (70-130); Calcium 9.9 mg/dL (7.8-10.44); Carbon Dioxide 21 mmol/L (23-31); Chloride 104 mmol/L (98-107); Estimated GFR 50; Globulin 3.5 g/dL (2.4-3.5); Glucose 177 mg/dL (80-115); Potassium 3.5 mmol/L (3.5-5.1); Protein, Total 7.2 g/dL (5.8-8.1); Sodium 135 mmol/L (136-145)
[2023-05-08 22:22] LABS: Bacteria/HPF None Seen HPF (None Seen); Bilirubin Negative (Negative); Blood, Urine Trace (Negative); CAUTI Indications for Culture Fever or rigors; Clarity Clear (Clear); Glucose, Urine (Dipstick) 100 mg/dL (Negative); Ketone, Urine Negative (Negative); Leukocyte Negative Leu/uL (Negative); Mucous/LPF Rare LPF (<2+); Nitrite Negative (Negative); Protein, Urine (Dipstick) Negative (Neg-Trace); RBC/HPF 0-3 HPF (0-3); Specific Gravity, Urine 1.012 (1.002-1.036); Squamous Epithelial 0-3 HPF (0-3); Urobilinogen Normal mg/dL (Less than 2); WBC/HPF 0-3 HPF (0-3)
[2023-05-08 22:25] LABS: Urine Culture Reflex No No
[2023-05-08 22:29] LABS: Amphetamine Not Detected (NotDetected); Barbiturates Screen Not Detected (NotDetected); Benzodiazepine Screen Not Detected (NotDetected); Cocaine Metabolite Screen Not Detected (NotDetected); Methadone Not Detected (NotDetected); Methamphetamine Detected (NotDetected); Opiate Screen Not Detected (NotDetected); Oxycodone Screen Not Detected (NotDetected); Phencyclidine (PCP) Not Detected (NotDetected); THC/Cannabinoid Screen Not Detected (NotDetected); Tricyclic Screen Not Detected (NotDetected)
[2023-05-08 22:41] LABS: SARS-CoV-2 NAA Rapid Test Not Detected (NotDetected)
[2023-05-08] MEDS ORDERED: Acetaminophen 325 MG TAB PO PRN (23:30)
[2023-05-08] MEDS ORDERED: Ondansetron PF 4 MG/2 ML Vial IVP PRN (23:30)
[2023-05-08] MEDS ORDERED: Ondansetron ODT 4 MG TAB SL PRN (23:30)
[2023-05-08] MEDS ORDERED: DAPTOmycin 500 MG VIAL SLOW IVP SCH (23:45)
[2023-05-09] MEDS ORDERED: Acetaminophen 650 MG Suppository PR PRN (00:29)
[2023-05-09 01:27] VITALS: BMI 23.3
[2023-05-09] MEDS: DAPTOmycin 700 MG in Sodium Chloride 0.9% 50 ML IVPB SCH (01:51)
[2023-05-09 04:43] LABS: #Basophils 0.1 thou/uL (0.0-0.2); #Monocytes 0.6 thou/uL (0.11-0.59); #Neutrophils 9.9 thou/uL (1.40-6.50); %Basophils 0.5 % (0.0-1.0); %Eosinophils 0.1 % (0.0-10.0); %Lymphocytes 10.7 % (21.0-51.0); %Monocytes 4.9 % (0.0-10.0); %Neutrophils 83.2 % (42.0-75.0); Hematocrit 38.6 % (42.0-52.0); Hemoglobin 12.6 g/dL (14.0-18.0); Mean Corpuscular HGB CONC 32.6 g/dL (32.0-36.0); Mean Platelet Volume 8.9 fL (7.4-10.4); Platelet Count 127 10x3/uL (130-400); RBC Distribution Width 14.6 % (11.5-14.5); Red Blood Cell (RBC) Count 3.94 mill/uL (4.70-6.10); White Blood Cell (WBC) Count 11.9 10x3/uL (4.8-10.8)
[2023-05-09 05:05] LABS: Anion Gap 13 mmol/L (10-20); BUN (Urea Nitrogen) 19 mg/dL (8.4-25.7); Calc. Creatinine Clearance 74 mL/min (70-130); Calcium 9.4 mg/dL (7.8-10.44); Carbon Dioxide 22 mmol/L (23-31); Chloride 106 mmol/L (98-107); Estimated GFR 75; Glucose 115 mg/dL (80-115); Sodium 137 mmol/L (136-145)
[2023-05-09] MEDS ORDERED: Metoprolol Tartrate 25 MG TAB ONE (09:01)
[2023-05-09] MEDS: Rosuvastatin 20 MG TAB PO SCH (10:19)
[2023-05-09] MEDS: Sacubitril 24MG/Valsartan 26 MG TAB PO SCH ×2 (10:19→20:08)
[2023-05-09] MEDS: Empagliflozin 10 MG TAB PO SCH (10:19)
[2023-05-09] MEDS: Spironolactone 25 MG TAB PO SCH (10:19)
[2023-05-09] MEDS: Venlafaxine 75 MG TAB PO SCH (10:20)
[2023-05-09] MEDS ORDERED: Sodium Chloride 0.9% 500 ML IV SCH (23:45)
[2023-05-10] MEDS: DAPTOmycin 700 MG in Sodium Chloride 0.9% 50 ML IVPB SCH (01:12)
[2023-05-10] MEDS: Clopidogrel Bisulfate 75 MG TAB PO SCH (10:04)
[2023-05-10] MEDS: Empagliflozin 10 MG TAB PO SCH (10:04)
[2023-05-10] MEDS: Venlafaxine 75 MG TAB PO SCH (10:04)
[2023-05-10] MEDS: Ezetimibe 10 MG TAB PO SCH (10:04)
[2023-05-10] MEDS: Rosuvastatin 20 MG TAB PO SCH (10:04)
[2023-05-10] MEDS: Spironolactone 25 MG TAB PO SCH (10:05)
[2023-05-10] MEDS: Sacubitril 24MG/Valsartan 26 MG TAB PO SCH ×2 (10:06→20:41)
[2023-05-10 11:16] LABS: Troponin I 0.015 ng/mL (< 0.028)
[2023-05-11] MEDS: DAPTOmycin 700 MG in Sodium Chloride 0.9% 50 ML IVPB SCH (01:02)
[2023-05-11] MEDS ORDERED: Spironolactone 25 MG TAB PO SCH (08:00)
[2023-05-11] MEDS: Rosuvastatin 20 MG TAB PO SCH (09:05)
[2023-05-11] MEDS: Sacubitril 24MG/Valsartan 26 MG TAB PO SCH (09:06)
[2023-05-11] MEDS: Clopidogrel Bisulfate 75 MG TAB PO SCH (09:06)
[2023-05-11] MEDS: Ezetimibe 10 MG TAB PO SCH (09:06)
[2023-05-11] MEDS: Venlafaxine 75 MG TAB PO SCH (09:06)
[2023-05-11] MEDS: Empagliflozin 10 MG TAB PO SCH (09:07)
[2023-05-11 10:04] LABS: Anion Gap 12 mmol/L (10-20); BUN (Urea Nitrogen) 19 mg/dL (8.4-25.7); Calc. Creatinine Clearance 79 mL/min (70-130); Calcium 8.9 mg/dL (7.8-10.44); Carbon Dioxide 23 mmol/L (23-31); Chloride 110 mmol/L (98-107); Estimated GFR 81; Glucose 100 mg/dL (80-115); Magnesium 2.2 mg/dL (1.6-2.6); Sodium 141 mmol/L (136-145)
[2023-05-11 11:15] VITALS: BP 108/64; TEMP 98.4
== END 2023-05-11 15:25 | disposition home or self-care (01) | DRG 871 ==
LOC: ERS 18:49 → 2SW 23:15 → ERHOLD 23:32 → OBSVTOIN 05-09 10:15 → 2SW 05-09 13:52
PROVIDERS: ADMIT Student in an Organized Health Care Education/Training Program; ATTEND Family Medicine
DX: A41.02 Sepsis due to Methicillin resistant Staphylococcus aureus (principal); I33.0 Acute and subacute infective endocarditis; I50.22 Chronic systolic (congestive) heart failure; N17.9 Acute kidney failure, unspecified; I13.0 Hypertensive heart and chronic kidney disease with heart failure and stage 1 through stage 4 chronic kidney disease, or unspecified chronic kidney disease; E78.5 Hyperlipidemia, unspecified; F19.10 Other psychoactive substance abuse, uncomplicated; R80.9 Proteinuria, unspecified; I25.10 Atherosclerotic heart disease of native coronary artery without angina pectoris; N40.0 Benign prostatic hyperplasia without lower urinary tract symptoms; G47.33 Obstructive sleep apnea (adult) (pediatric); F17.210 Nicotine dependence, cigarettes, uncomplicated; R77.8 Other specified abnormalities of plasma proteins; D50.9 Iron deficiency anemia, unspecified; B95.62 Methicillin resistant Staphylococcus aureus infection as the cause of diseases classified elsewhere; N18.2 Chronic kidney disease, stage 2 (mild); D63.1 Anemia in chronic kidney disease; I25.2 Old myocardial infarction; Z71.51 Drug abuse counseling and surveillance of drug abuser; Z11.52 Encounter for screening for COVID-19; Z79.899 Other long term (current) drug therapy; Z90.89 Acquired absence of other organs; Z95.810 Presence of automatic (implantable) cardiac defibrillator; Z98.890 Other specified postprocedural states
CPT/HCPCS: 36415; 71045; 80048; 80306; 81001; 82550; 83605; 83735; 84484; 85025; 86140; 87040; 87633; 93005; J0878; J1650; J7030

== ENCOUNTER 2023-06-29 18:16 | Inpatient (IN) | payer MEDICARE, OTHER ==
[2023-06-29] MEDS ORDERED: Ondansetron PF 4 MG/2 ML Vial ONE (19:22)
[2023-06-29] MEDS ORDERED: Ketorolac Tromethamine 30 MG (1 mL) VIAL ONE (19:22)
[2023-06-29 19:24] LABS: #Basophils 0.1 thou/uL (0.0-0.2); #Monocytes 0.6 thou/uL (0.11-0.59); #Neutrophils 7.1 thou/uL (1.40-6.50); %Basophils 0.9 % (0.0-1.0); %Eosinophils 0.4 % (0.0-10.0); %Lymphocytes 25.8 % (21.0-51.0); %Neutrophils 66.4 % (42.0-75.0); Hematocrit 49.8 % (42.0-52.0); Hemoglobin 16.6 g/dL (14.0-18.0); Mean Corpuscular HGB CONC 33.3 g/dL (32.0-36.0); Mean Corpuscular Hemoglobin 32.6 pg (27.0-31.0); Mean Corpuscular Volume 97.8 fl (78.0-98.0); Mean Platelet Volume 9.2 fL (7.4-10.4); Platelet Count 184 10x3/uL (130-400); RBC Distribution Width 13.1 % (11.5-14.5); Red Blood Cell (RBC) Count 5.09 mill/uL (4.70-6.10); White Blood Cell (WBC) Count 10.7 10x3/uL (4.8-10.8)
[2023-06-29 20:03] LABS: ALT (SGPT) 16 U/L (8-55); AST (SGOT) 21 U/L (5-34); Albumin 4.2 g/dL (3.4-4.8); Alkaline Phosphatase 82 U/L (40-110); Anion Gap 16 mmol/L (10-20); BUN (Urea Nitrogen) 24 mg/dL (8.4-25.7); Bilirubin, Total 0.2 mg/dL (0.2-1.2); Calc. Creatinine Clearance 0 mL/min (70-130); Calcium 9.6 mg/dL (7.8-10.44); Carbon Dioxide 22 mmol/L (23-31); Chloride 101 mmol/L (98-107); Estimated GFR 60; Globulin 3.7 g/dL (2.4-3.5); Glucose 86 mg/dL (80-115); Lipase 32 U/L (8-78); Potassium 4.5 mmol/L (3.5-5.1); Protein, Total 7.9 g/dL (5.8-8.1); Sodium 134 mmol/L (136-145)
[2023-06-29] MEDS ORDERED: Enoxaparin 80 MG (0.8 mL) SYRINGE ONE (22:28)
[2023-06-29] MEDS ORDERED: Morphine 4 MG/ML VIAL ONE (22:28)
[2023-06-29] MEDS ORDERED: Ondansetron ODT 4 MG TAB SL PRN (23:15)
[2023-06-29] MEDS ORDERED: Acetaminophen 325 MG TAB PO PRN ×2 (23:15→23:42)
[2023-06-29] MEDS ORDERED: Ondansetron PF 4 MG/2 ML Vial IVP PRN (23:15)
[2023-06-29] MEDS ORDERED: Senokot S 8.6-50 MG TAB PO PRN (23:42)
[2023-06-29] MEDS ORDERED: Ondansetron ODT 4 MG TAB PO PRN (23:42)
[2023-06-29] MEDS ORDERED: Calcium Carbonate 500 MG ChewTAB PO PRN (23:42)
[2023-06-30 04:24] LABS: #Basophils 0.1 thou/uL (0.0-0.2); #Eosinphils 0.2 thou/uL (0.0-0.7); #Monocytes 0.6 thou/uL (0.11-0.59); #Neutrophils 3.6 thou/uL (1.40-6.50); %Basophils 1.1 % (0.0-1.0); %Eosinophils 2.5 % (0.0-10.0); %Lymphocytes 40.1 % (21.0-51.0); %Monocytes 7.6 % (0.0-10.0); %Neutrophils 48.4 % (42.0-75.0); Hematocrit 45.9 % (42.0-52.0); Hemoglobin 14.5 g/dL (14.0-18.0); Mean Corpuscular HGB CONC 31.6 g/dL (32.0-36.0); Mean Corpuscular Hemoglobin 31.5 pg (27.0-31.0); Mean Corpuscular Volume 99.6 fl (78.0-98.0); Mean Platelet Volume 9.6 fL (7.4-10.4); Platelet Count 160 10x3/uL (130-400); RBC Distribution Width 13.2 % (11.5-14.5); Red Blood Cell (RBC) Count 4.61 mill/uL (4.70-6.10); White Blood Cell (WBC) Count 7.5 10x3/uL (4.8-10.8)
[2023-06-30 05:02] LABS: Anion Gap 10 mmol/L (10-20); BUN (Urea Nitrogen) 26 mg/dL (8.4-25.7); Calc. Creatinine Clearance 70 mL/min (70-130); Calcium 8.5 mg/dL (7.8-10.44); Carbon Dioxide 22 mmol/L (23-31); Chloride 107 mmol/L (98-107); Estimated GFR 63; Glucose 113 mg/dL (80-115); Sodium 135 mmol/L (136-145)
[2023-06-30] MEDS: Empagliflozin 10 MG TAB PO SCH (08:09)
[2023-06-30] MEDS: Venlafaxine 75 MG TAB PO SCH (08:09)
[2023-06-30] MEDS: Spironolactone 25 MG TAB PO SCH (08:09)
[2023-06-30] MEDS: Clopidogrel Bisulfate 75 MG TAB PO SCH (08:09)
[2023-06-30] MEDS: Tamsulosin HCl 0.4 MG CAP PO SCH (08:10)
[2023-06-30] MEDS: Rosuvastatin 20 MG TAB PO SCH (08:10)
[2023-06-30] MEDS: Famotidine 20 MG TAB PO SCH ×2 (08:10→20:14)
[2023-06-30] MEDS: Ezetimibe 10 MG TAB PO SCH (08:10)
[2023-06-30] MEDS: Sacubitril 24MG/Valsartan 26 MG TAB PO SCH ×2 (08:14→20:14)
[2023-06-30 13:18] LABS: Amphetamine Detected (NotDetected); Barbiturates Screen Not Detected (NotDetected); Benzodiazepine Screen Not Detected (NotDetected); Cocaine Metabolite Screen Not Detected (NotDetected); Methadone Not Detected (NotDetected); Methamphetamine Detected (NotDetected); Opiate Screen Detected (NotDetected); Oxycodone Screen Not Detected (NotDetected); Phencyclidine (PCP) Not Detected (NotDetected); THC/Cannabinoid Screen Not Detected (NotDetected); Tricyclic Screen Not Detected (NotDetected)
[2023-06-30] MEDS: traMADol HCl 50 MG TAB PO PRN (15:31)
[2023-07-01] MEDS: traMADol HCl 50 MG TAB PO PRN (04:30)
[2023-07-01 04:52] VITALS: BMI 26.1
[2023-07-01] MEDS: Rosuvastatin 20 MG TAB PO SCH (08:18)
[2023-07-01] MEDS: Spironolactone 25 MG TAB PO SCH (08:18)
[2023-07-01] MEDS: Tamsulosin HCl 0.4 MG CAP PO SCH (08:18)
[2023-07-01] MEDS: Venlafaxine 75 MG TAB PO SCH (08:18)
[2023-07-01] MEDS: Clopidogrel Bisulfate 75 MG TAB PO SCH (08:18)
[2023-07-01] MEDS: Ezetimibe 10 MG TAB PO SCH (08:18)
[2023-07-01] MEDS: Sacubitril 24MG/Valsartan 26 MG TAB PO SCH (08:21)
[2023-07-01] MEDS: Empagliflozin 10 MG TAB PO SCH (08:21)
[2023-07-01] MEDS: Famotidine 20 MG TAB PO SCH (08:21)
[2023-07-01 12:28] VITALS: BP 117/65; TEMP 97.8
[2023-07-03] MEDS ORDERED: FLU VACC QS2023(65UP)/MF59C/PF 60 MCG/0.5 ML SYRINGE IM ONE (09:00)
== END 2023-07-01 15:59 | disposition home or self-care (01) | DRG 394 ==
LOC: ERS 18:16 → ERHOLD 23:00 → 2SW 06-30 02:46 → OBSVTOIN 06-30 11:09
PROVIDERS: ADMIT Student in an Organized Health Care Education/Training Program; ATTEND Internal Medicine
DX: K55.059 Acute (reversible) ischemia of intestine, part and extent unspecified (principal); I42.9 Cardiomyopathy, unspecified; I50.22 Chronic systolic (congestive) heart failure; E78.5 Hyperlipidemia, unspecified; N40.0 Benign prostatic hyperplasia without lower urinary tract symptoms; I11.0 Hypertensive heart disease with heart failure; I25.2 Old myocardial infarction; Z90.89 Acquired absence of other organs; Z95.5 Presence of coronary angioplasty implant and graft; F17.210 Nicotine dependence, cigarettes, uncomplicated; Z88.1 Allergy status to other antibiotic agents; Z79.899 Other long term (current) drug therapy; I25.10 Atherosclerotic heart disease of native coronary artery without angina pectoris; Z95.810 Presence of automatic (implantable) cardiac defibrillator
CPT/HCPCS: 36415; 74177; 76705; 80048; 80053; 80306; 83605; 83690; 85025; 93306; 96372; 96374; 96375; G0378; J1650; J1885; J2270; J2405; Q9967

== ENCOUNTER 2025-04-26 16:17 | Inpatient (IN) | payer MEDICARE, OTHER ==
[2025-04-26] MEDS ORDERED: cefTRIAXone (ROCEPHIN) 2 GM VIAL ONE (16:48)
[2025-04-26 17:05] LABS: ALT (SGPT) 17 U/L (Less than 45); AST (SGOT) 27 U/L (11-34); Albumin 3.0 g/dL (3.1-4.5); Alkaline Phosphatase 53 U/L (40-110); Anion Gap 15 mmol/L (10-20); BUN (Urea Nitrogen) 16 mg/dL (8.4-25.7); Bilirubin, Total 0.5 mg/dL (0.3-1.2); Calc. Creatinine Clearance 0 mL/min (70-130); Calcium 8.4 mg/dL (7.8-10.44); Carbon Dioxide 19 mmol/L (23-31); Chloride 105 mmol/L (98-107); Globulin 2.9 g/dL (2.4-3.5); Glucose 106 mg/dL (80-115); Potassium 3.9 mmol/L (3.5-5.1); Sodium 135 mmol/L (136-145)
[2025-04-26 17:23] LABS: Hematocrit 42.4 % (42.0-52.0); Hemoglobin 13.9 g/dL (14.0-18.0); Mean Corpuscular Hemoglobin 32.3 pg (27.0-31.0); Mean Corpuscular Volume 98.6 fL (78.0-98.0); Platelet Count 90 10x3/uL (130-400); Red Blood Cell (RBC) Count 4.30 mill/uL (4.70-6.10); White Blood Cell (WBC) Count 11.10 10x3/uL (4.8-10.8)
[2025-04-26 17:27] LABS: CAUTI Indications for Culture Dysuria,urgency,freq; Glucose, Urine (Dipstick) Normal (Negative); Leukocyte 250 Leu/uL (Negative); Protein, Urine (Dipstick) 50 mg/dL (Neg-Trace); Specific Gravity, Urine 1.021 (1.002-1.036); WBC/HPF 21-50 HPF (0-3)
[2025-04-26 17:38] LABS: Bacteria/HPF 1+ HPF (None Seen)
[2025-04-26 17:39] LABS: Urine Culture Reflex Yes Yes
[2025-04-26 17:42] LABS: #Basophils 0.03 10x3/uL (0.0-0.2); #Eosinophils Less than 0.03 10x3/uL (0.0-0.7); #Monocytes 0.69 10x3/uL (0.11-0.59); #Neutrophils 9.74 10x3/uL (1.40-6.50); %Basophils 0.3 % (0.0-1.0); %Eosinophils 0.0 % (0.0-10.0); %Lymphocytes 4.5 % (21.0-51.0); %Monocytes 6.3 % (0.0-10.0); %Neutrophils 88.2 % (42.0-75.0)
[2025-04-26 17:43] LABS: Anisocytosis SLIGHT = 6-15 cells HPF (0-5); Burr Cells SLIGHT = 2-5 cells HPF (0-1); Macrocytosis SLIGHT = 6-15 cells HPF (0-5); Platelet Adequacy Comment Platelets Decreased
[2025-04-26] MEDS ORDERED: VANCOMYCIN 2 GRAM/400 ML BAG ONE (17:44)
[2025-04-26] MEDS ORDERED: Acetaminophen 325 MG TAB PO PRN (18:53)
[2025-04-26] MEDS ORDERED: Ondansetron PF 4 MG/2 ML Vial IVP PRN (18:53)
[2025-04-26] MEDS ORDERED: Guaifenesin DM 100-10/5 ML UDCUP PO PRN (18:53)
[2025-04-26] MEDS ORDERED: Calcium Carbonate 500 MG ChewTAB PO PRN (18:53)
[2025-04-26 22:31] VITALS: BMI 25.2
[2025-04-26] MEDS: Sacubitril 24MG/Valsartan 26 MG TAB PO SCH (22:42)
[2025-04-26] MEDS ORDERED: Pharmacy to Dose: VANC IVPB PRN (22:58)
[2025-04-27 04:11] LABS: #Basophils 0.03 10x3/uL (0.0-0.2); #Eosinophils Less than 0.03 10x3/uL (0.0-0.7); #Monocytes 0.48 10x3/uL (0.11-0.59); #Neutrophils 6.55 10x3/uL (1.40-6.50); %Basophils 0.4 % (0.0-1.0); %Eosinophils 0.0 % (0.0-10.0); %Lymphocytes 8.3 % (21.0-51.0); %Monocytes 6.2 % (0.0-10.0); %Neutrophils 84.6 % (42.0-75.0); Hematocrit 43.0 % (42.0-52.0); Hemoglobin 14.1 g/dL (14.0-18.0); Mean Corpuscular Hemoglobin 32.3 pg (27.0-31.0); Mean Corpuscular Volume 98.6 fL (78.0-98.0); Platelet Count 93 10x3/uL (130-400); Red Blood Cell (RBC) Count 4.36 mill/uL (4.70-6.10); Vancomycin, Random 12.0 ug/mL (See Comment); White Blood Cell (WBC) Count 7.74 10x3/uL (4.8-10.8)
[2025-04-27 04:13] LABS: Anion Gap 12 mmol/L (10-20); BUN (Urea Nitrogen) 19 mg/dL (8.4-25.7); Calc. Creatinine Clearance 79 mL/min (70-130); Calcium 8.1 mg/dL (7.8-10.44); Carbon Dioxide 21 mmol/L (23-31); Chloride 109 mmol/L (98-107); Glucose 105 mg/dL (80-115); Potassium 3.8 mmol/L (3.5-5.1); Sodium 138 mmol/L (136-145)
[2025-04-27] MEDS ORDERED: Vancomycin 1 GM in Premix 1 BAG IVPB SCH (06:00)
[2025-04-27] MEDS: Spironolactone 25 MG TAB PO SCH (08:22)
[2025-04-27] MEDS: Rosuvastatin 20 MG TAB PO SCH (08:25)
[2025-04-27] MEDS: Ezetimibe 10 MG TAB PO SCH (08:25)
[2025-04-27] MEDS: Metoprolol Succinate XL 25 MG ER.TAB PO SCH (08:26)
[2025-04-27] MEDS: Vancomycin 1.5 GM / NS 500 ML VIAL-2-BAG IVPB SCH (08:26)
[2025-04-27] MEDS: Enoxaparin 40 MG (0.4 mL) SYRINGE SC SCH (08:27)
[2025-04-28 04:10] LABS: Vancomycin, Random 8.3 ug/mL (See Comment)
[2025-04-28] MEDS: VANCOMYCIN 2 GRAM/400 ML BAG 2 GM in Premix 1 BAG IVPB SCH (10:00)
[2025-04-28] MEDS: Aspirin 81 mg Enteric Coated Tablet PO SCH (10:01)
[2025-04-28] MEDS: Enoxaparin 80 MG (0.8 mL) SYRINGE SC SCH (21:07)
[2025-04-28] MEDS: Vancomycin 1 GM in Premix 1 BAG IVPB SCH (21:08)
[2025-04-29 03:55] LABS: #Basophils 0.05 10x3/uL (0.0-0.2); #Eosinophils 0.04 10x3/uL (0.0-0.7); #Monocytes 0.61 10x3/uL (0.11-0.59); #Neutrophils 3.39 10x3/uL (1.40-6.50); %Basophils 0.8 % (0.0-1.0); %Eosinophils 0.7 % (0.0-10.0); %Lymphocytes 30.8 % (21.0-51.0); %Monocytes 10.3 % (0.0-10.0); %Neutrophils 56.9 % (42.0-75.0); Hematocrit 41.5 % (42.0-52.0); Hemoglobin 13.7 g/dL (14.0-18.0); Mean Corpuscular Hemoglobin 32.9 pg (27.0-31.0); Mean Corpuscular Volume 99.5 fL (78.0-98.0); Platelet Count 110 10x3/uL (130-400); Red Blood Cell (RBC) Count 4.17 mill/uL (4.70-6.10); White Blood Cell (WBC) Count 5.95 10x3/uL (4.8-10.8)
[2025-04-29 04:07] LABS: Anion Gap 9 mmol/L (10-20); BUN (Urea Nitrogen) 19 mg/dL (8.4-25.7); Calc. Creatinine Clearance 79 mL/min (70-130); Calcium 8.7 mg/dL (7.8-10.44); Carbon Dioxide 24 mmol/L (23-31); Chloride 115 mmol/L (98-107); Glucose 97 mg/dL (80-115); Potassium 4.0 mmol/L (3.5-5.1); Sodium 144 mmol/L (136-145); Vancomycin, Random 18.0 ug/mL (See Comment)
[2025-04-30 03:56] LABS: #Basophils 0.05 10x3/uL (0.0-0.2); #Eosinophils 0.11 10x3/uL (0.0-0.7); #Monocytes 0.65 10x3/uL (0.11-0.59); #Neutrophils 3.53 10x3/uL (1.40-6.50); %Basophils 0.7 % (0.0-1.0); %Eosinophils 1.6 % (0.0-10.0); %Lymphocytes 34.7 % (21.0-51.0); %Monocytes 9.7 % (0.0-10.0); %Neutrophils 52.9 % (42.0-75.0); Hematocrit 44.5 % (42.0-52.0); Hemoglobin 14.4 g/dL (14.0-18.0); Mean Corpuscular Hemoglobin 32.1 pg (27.0-31.0); Mean Corpuscular Volume 99.1 fL (78.0-98.0); Platelet Count 125 10x3/uL (130-400); Red Blood Cell (RBC) Count 4.49 mill/uL (4.70-6.10); White Blood Cell (WBC) Count 6.69 10x3/uL (4.8-10.8)
[2025-04-30 04:13] LABS: Anion Gap 15 mmol/L (10-20); BUN (Urea Nitrogen) 16 mg/dL (8.4-25.7); Calc. Creatinine Clearance 81 mL/min (70-130); Calcium 8.4 mg/dL (7.8-10.44); Carbon Dioxide 24 mmol/L (23-31); Chloride 112 mmol/L (98-107); Glucose 95 mg/dL (80-115); Potassium 4.2 mmol/L (3.5-5.1); Sodium 147 mmol/L (136-145)
[2025-05-01 04:14] LABS: Anion Gap 10 mmol/L (10-20); BUN (Urea Nitrogen) 15 mg/dL (8.4-25.7); Calc. Creatinine Clearance 95 mL/min (70-130); Calcium 8.8 mg/dL (7.8-10.44); Carbon Dioxide 26 mmol/L (23-31); Chloride 110 mmol/L (98-107); Glucose 96 mg/dL (80-115); Potassium 4.0 mmol/L (3.5-5.1); Sodium 142 mmol/L (136-145)
[2025-05-01 04:24] LABS: #Basophils 0.05 10x3/uL (0.0-0.2); #Eosinophils 0.16 10x3/uL (0.0-0.7); #Monocytes 0.51 10x3/uL (0.11-0.59); #Neutrophils 3.40 10x3/uL (1.40-6.50); %Basophils 0.8 % (0.0-1.0); %Eosinophils 2.4 % (0.0-10.0); %Lymphocytes 37.1 % (21.0-51.0); %Monocytes 7.7 % (0.0-10.0); %Neutrophils 51.4 % (42.0-75.0); Hematocrit 42.8 % (42.0-52.0); Hemoglobin 14.2 g/dL (14.0-18.0); Mean Corpuscular Hemoglobin 32.4 pg (27.0-31.0); Mean Corpuscular Volume 97.7 fL (78.0-98.0); Platelet Count 141 10x3/uL (130-400); Red Blood Cell (RBC) Count 4.38 mill/uL (4.70-6.10); White Blood Cell (WBC) Count 6.61 10x3/uL (4.8-10.8)
[2025-05-01] MEDS: Apixaban 5 MG TAB PO SCH (21:07)
[2025-05-02 04:30] LABS: Vancomycin, Random 15.3 ug/mL (See Comment)
[2025-05-02 04:31] LABS: Calc. Creatinine Clearance 98.0 mL/min (70-130)
[2025-05-02 09:09] VITALS: BP 116/71; TEMP 98.1
[2025-05-02] MEDS ORDERED: Vancomycin HCl 1.25 GM in Sodium Chloride 0.9% 250 ML 250 ML IVPB SCH ×2 (10:00→22:00)
== END 2025-05-02 11:37 | disposition home or self-care (01) | DRG 871 ==
LOC: ERS 16:17 → PCU 18:50
PROVIDERS: ADMIT Internal Medicine; ATTEND Internal Medicine
PROC: 3E03329 Introduction of Other Anti-infective into Peripheral Vein, Percutaneous Approach (ICD-10-PCS; 2025-04-29)
PROC: 05HY33Z Insertion of Infusion Device into Upper Vein, Percutaneous Approach (ICD-10-PCS; principal; 2025-05-01)
DX: A41.02 Sepsis due to Methicillin resistant Staphylococcus aureus (principal); G93.41 Metabolic encephalopathy; I50.22 Chronic systolic (congestive) heart failure; N30.01 Acute cystitis with hematuria; E87.1 Hypo-osmolality and hyponatremia; I42.9 Cardiomyopathy, unspecified; E87.0 Hyperosmolality and hypernatremia; Z88.1 Allergy status to other antibiotic agents; I25.10 Atherosclerotic heart disease of native coronary artery without angina pectoris; I25.2 Old myocardial infarction; Z95.5 Presence of coronary angioplasty implant and graft; Z98.890 Other specified postprocedural states; R79.89 Other specified abnormal findings of blood chemistry; E78.5 Hyperlipidemia, unspecified; F39 Unspecified mood [affective] disorder; N40.0 Benign prostatic hyperplasia without lower urinary tract symptoms; I11.0 Hypertensive heart disease with heart failure; F17.210 Nicotine dependence, cigarettes, uncomplicated; R19.7 Diarrhea, unspecified; Z79.82 Long term (current) use of aspirin; Z79.899 Other long term (current) drug therapy; I51.3 Intracardiac thrombosis, not elsewhere classified; Z79.02 Long term (current) use of antithrombotics/antiplatelets
CPT/HCPCS: 36415; 36416; 51701; 71045; 74176; 80048; 80053; 80202; 81001; 82565; 83605; 83880; 84484; 85025; 86141; 87040; 87077; 87086; 87149; 87186; 87428; 93005; 93306; 94760; 96374; 96375; J0692; J0696; J1650; J3373; J3375; J7030